=== PATIENT | male | born 1960 | race Caucasian/White ===

== ENCOUNTER 2019-04-28 06:00 | Outpatient (RCR) | payer MEDICARE, SELFPAY | END 2019-05-28 00:01 | LOC: MOT 06:00 | PROVIDERS: Family Provider Family Medicine; Visit Provider Nurse Practitioner Family | DX: L97.911 Non-pressure chronic ulcer of unspecified part of right lower leg limited to breakdown of skin (principal); L97.921 Non-pressure chronic ulcer of unspecified part of left lower leg limited to breakdown of skin | CPT/HCPCS: 97140 ×12 ==

== ENCOUNTER 2019-05-29 06:00 | Outpatient (RCR) | payer MEDICARE, MEDICAID, SELFPAY | END 2019-06-28 23:59 | disposition home or self-care (01) | LOC: MOT 06:00 | PROVIDERS: Family Provider Family Medicine; PCP Family Medicine; Visit Provider Nurse Practitioner Family | DX: R60.0 Localized edema (principal) | CPT/HCPCS: 97140 ==

== ENCOUNTER → 2019-06-06 15:41 | Outpatient (BNVA) | payer MEDICARE, MEDICAID, SELFPAY | PROVIDERS: Family Provider Family Medicine; PCP Family Medicine; Visit Provider Family Medicine | DX: I50.30 Unspecified diastolic (congestive) heart failure (principal) | CPT/HCPCS: 80048 ==

== ENCOUNTER → 2019-06-10 10:20 | Outpatient (BNVA) | payer MEDICARE, MEDICAID, SELFPAY | PROVIDERS: Family Provider Family Medicine; PCP Family Medicine; Visit Provider Nurse Practitioner Family | DX: M16.12 Unilateral primary osteoarthritis, left hip (principal) | CPT/HCPCS: 73502; 87086 ==

== ENCOUNTER 2019-06-26 10:51 | Outpatient (RCR) | payer MEDICARE, MEDICAID, SELFPAY ==
--- NOTE | 2019-06-12 10:01 | USCV_ITS ---
David Sánchez Age: 59 Gender: M : 1960 Exam Date: 06/12/2019 10:03 Ordering Phys: Arely Diamond Technologist: Exam Location: [facility] – [place] Indication: PAIN REDNESS NON HEALING ULCER RIGHT LEFT Brachial 123.00 mmHg Brachial 132.00 mmHg Pressure (mmHg) Waveform Pressure (mmHg) Waveform 110.00 Pre-Exercise Toe Pressure 91.00 0.83 Pre-Exercise Toe/Brachial Index 0.69 FINDINGS Normal resting TBI on the right side Borderline low resting TBI on the left side Unable to do JOHN because of the wounds and bandages around the ankle CONCLUSIONS Possible mild peripheral artery disease in the left side. No significant arterial obstruction on the right side, based on the TBI Technically limited study Dr Alber Michael MD FAC (Electronically Signed) Final Date: 13 June 2019 09:10 S
== END 2019-06-28 23:59 | disposition home or self-care (01) ==
LOC: RAD 10:51
PROVIDERS: Family Provider Family Medicine; PCP Family Medicine; Visit Provider Nurse Practitioner Family
DX: I87.2 Venous insufficiency (chronic) (peripheral) (principal); L97.822 Non-pressure chronic ulcer of other part of left lower leg with fat layer exposed; M79.605 Pain in left leg; M79.604 Pain in right leg
CPT/HCPCS: 29581; 87070; 87077; 87186; 93922; 99203; 99214; A6530; A6545

== ENCOUNTER → 2019-06-27 10:56 | Outpatient (BNVA) | payer MEDICARE, MEDICAID, SELFPAY | PROVIDERS: Family Provider Family Medicine; PCP Family Medicine; Visit Provider Family Medicine | DX: I50.32 Chronic diastolic (congestive) heart failure (principal); F33.40 Major depressive disorder, recurrent, in remission, unspecified; L97.911 Non-pressure chronic ulcer of unspecified part of right lower leg limited to breakdown of skin; M16.10 Unilateral primary osteoarthritis, unspecified hip | CPT/HCPCS: 80048 ==

== ENCOUNTER → 2019-06-28 12:54 | Outpatient (BNVA) | payer MEDICARE, MEDICAID, SELFPAY | PROVIDERS: Family Provider Family Medicine; PCP Family Medicine; Visit Provider Anesthesiology | DX: G89.29 Other chronic pain (principal); M54.5 Low back pain; M79.651 Pain in right thigh; M79.652 Pain in left thigh; Z79.891 Long term (current) use of opiate analgesic | CPT/HCPCS: 99214 ==

== ENCOUNTER → 2019-07-02 12:36 | Outpatient (BNVA) | payer MEDICARE, SELFPAY | PROVIDERS: Family Provider Family Medicine; PCP Family Medicine; Visit Provider Psychiatry & Neurology Psychiatry | DX: F33.2 Major depressive disorder, recurrent severe without psychotic features (principal); F41.1 Generalized anxiety disorder | CPT/HCPCS: 99214 ==

== ENCOUNTER → 2019-07-09 07:06 | Day surgery (SDC) | payer MEDICARE, MEDICAID, SELFPAY ==
[2019-07-09 07:58] VITALS: BMI 29.9
--- NOTE | 2019-07-09 08:12 | PM.HPUD ---
H&P update H&P Update: DATE OF SURGERY/PROCEDURE: 07/09/19 DATE H&P PERFORMED: 06/10/19 H&P UPDATE INFORMATION: H&P completed within last 30 days and No changes to prior documentation PLANNED PROCEDURE: Operation Date: 07/09/19 09:30 Proposed Procedures p Colonoscopy 77256 Z12.11(Not Applicable) - Henry Hernandez MD Full H&P Perinent History: Medical/Surgical History: Medical History (Updated 06/30/19 @ 14:04 by Jenn Mcgowan MD) Anxiety and depression CHF (congestive heart failure) Diabetes Generalized anxiety disorder GERD (gastroesophageal reflux disease) Hemorrhoids Hip arthritis Impaired mobility and activities of daily living Leg ulcer Major depressive disorder, recurrent severe without psychotic features Overflow incontinence of urine Urinary retention Family History: Family History (Updated 06/10/19 @ 15:34 by Meera Ashford LPN) Brother Heart disease Mother Cancer stomach Father Cancer colon cancer Denies family history of Anesthesia complication Bleeding disorder Social History: Social History Smoking and tobacco status: never smoked Alcohol intake: never Household members: significant other Marital status: Single Current occupational status: disabled
[2019-07-09 08:16] LABS: Glucose Point of Care 105 mg/dL (70-110)
[2019-07-09] MEDS: sodium chloride 0.9% 1,000 ML 30 ML (08:23)
[2019-07-09 09:25] VITALS: BP 122/64; PULSE 76; RESP 18; TEMP 36.4; O2SAT 98
== END | disposition home or self-care (01) ==
PROVIDERS: Family Provider Family Medicine; PCP Family Medicine; Visit Provider Surgery
PROC: 0DJD8ZZ Inspection of Lower Intestinal Tract, Via Natural or Artificial Opening Endoscopic (ICD-10-PCS; CPT 45378; principal; 2019-07-09 09:30)
DX: Z12.11 Encounter for screening for malignant neoplasm of colon (principal); Z53.9 Procedure and treatment not carried out, unspecified reason; Z79.82 Long term (current) use of aspirin; Z79.84 Long term (current) use of oral hypoglycemic drugs; F41.9 Anxiety disorder, unspecified; F32.9 Major depressive disorder, single episode, unspecified; I50.9 Heart failure, unspecified; E11.9 Type 2 diabetes mellitus without complications; K21.9 Gastro-esophageal reflux disease without esophagitis; Z83.3 Family history of diabetes mellitus; Z82.49 Family history of ischemic heart disease and other diseases of the circulatory system
CPT/HCPCS: 12345; 36416; 82962; J2704; J7030

== ENCOUNTER 2019-07-10 08:36 | Outpatient (RCR) | payer MEDICARE, MEDICAID, SELFPAY | END 2019-07-27 23:59 | disposition home or self-care (01) | LOC: WOUND 08:36 | PROVIDERS: Family Provider Family Medicine; PCP Family Medicine; Visit Provider Nurse Practitioner Family | DX: I87.2 Venous insufficiency (chronic) (peripheral) (principal); L97.812 Non-pressure chronic ulcer of other part of right lower leg with fat layer exposed | CPT/HCPCS: 99214; G0463 ==

== ENCOUNTER 2019-07-15 11:23 | Emergency (ER) | payer MEDICARE, MEDICAID, SELFPAY ==
[2019-07-15 11:24] VITALS: BP 116/69; PULSE 82; RESP 16; TEMP 36.7; O2SAT 95; BMI 39.0
--- NOTE | 2019-07-15 11:31 | PC.NURSE ---
Patient arrives via EMS with a chief complaint of increase agitation and medication abuse. Patient reports his anger has got much worse. Patient also states while at bedside I don't want to hurt my girlfriend but I'd kill her, but don't want to hurt her. Patient denies SI. Patient reports a history of SI.
--- NOTE | 2019-07-15 11:53 | PC.NURSE ---
GODWIN Shin notified of the patients comment during assessment.
--- NOTE | 2019-07-15 11:54 | ECG_ITS ---
Measurements Intervals [place] Rate: 77 P: 45 CT: 198 QRS: 74 QRSD: 117 T: 39 QT: 404 QTc: 459 SINUS RHYTHM POSSIBLE LEFT ATRIAL ENLARGEMENT [-0.1mV P WAVE IN V1/V2] MODERATE INTRAVENTRICULAR CONDUCTION DELAY [110+ ms QRS DURATION] No previous ECG available for comparison Electronically Signed On 07-15-2019 16:06:16 CERTIFIED EXECUTIVE CHEF by Zac Meraz M.D. [email or web address]
--- NOTE | 2019-07-15 11:54 | CTR_ITS ---
PROCEDURE INFORMATION: Exam: CT Head Without Contrast Exam date and time: 07/15/2019 12:13 PM Age: 59 years old Clinical indication: Altered mental status/memory loss; Patient HX: AMS with history of dementia TECHNIQUE: Imaging protocol: Computed tomography of the head without contrast. Total DLP: 784.43 mGy-cm Radiation optimization: All CT scans at this facility use at least one of these dose optimization techniques: automated exposure control; mA and/or kV adjustment per patient size (includes targeted exams where dose is matched to clinical indication); or iterative reconstruction. COMPARISON: No relevant prior studies available. FINDINGS: Brain: There is no acute intracranial hemorrhage or mass effect. Mild diffuse volume loss is within the range of normal for patient age. There are small vessel ischemic changes within the periventricular and subcortical white matter, but the normal travis/white matter delineation is maintained. Ventricles: Diffuse prominence of the ventricular system is out of proportion to the degree of volume loss, raising the possibility of normal pressure hydrocephalus. Bones/joints: Unremarkable. No acute fracture. Sinuses: Visualized sinuses are unremarkable. No fluid levels. Mastoid air cells: Visualized mastoid air cells are well aerated. Soft tissues: Unremarkable. CT/CT head wo con* [id number] IMPRESSION: 1. No acute hemorrhage or edema. 2. Suspected normal pressure hydrocephalus. Radiation Dose CTDIVOL = (mGy): DLP = 784.43 (mGy-cm)
--- NOTE | 2019-07-15 11:57 | W.ED.AMS ---
Documented by User: GODWIN Rosas 07/15/19 14:28 HPI - Altered Mental Status General: Chief Complaint: Psychiatric Symptoms Stated Complaint: MHE/anger issues Time Seen by Provider: 07/15/19 11:28 Source: patient Mode of arrival: EMS Limitations: no limitations History of Present Illness: HPI narrative: Patient is a 59-year-old male who presents to ED today stating he believes he is overdosing himself on medications. He tells me that the girlfriend wanted him to come to the emergency department because he was acting loopy . Patient tells me that the girlfriend places his medication in a pill dispenser and states he is scheduled to take medications 4 times daily. He states when he misses his morning dose he will often take his morning and noon doses together. Patient has a history of dementia as well as intellectual delays. He tells me he is his own guardian. Girlfriend is at home currently and according to EMS also has intellectual disabilities. MD complaint: other (Medication noncompliance) Onset (ago): unknown Consistency of symptoms: Waxing and Waning Associated symptoms: Reports no associated symptoms Review of Systems Const: Denies: fever, chills or body aches Eyes: Denies: change in vision or blurry vision Card: Denies: chest pain, palpitations, irregular heart rhythm, edema, lightheadedness, syncope or pre-syncope Resp: Denies: shortness of breath, productive cough or chest congestion GI: Denies: abdominal pain, nausea or vomiting Musc: Denies: neck pain or back pain Skin/Breast: Denies: rash Neuro: Denies: headache, numbness in extremities, weakness in extremities, changes in sensation, lack of coordination, dizziness, confusion or seizure-like activity [facility] ED PFSH: Family History (Updated 07/22/19 @ 11:15 by Hanna Montilla DO) Brother Heart disease Mother Cancer stomach Father Cancer colon cancer CAD (coronary artery disease) Denies family history of Anesthesia complication Bleeding disorder Social History Smoking and tobacco status: former smoker Alcohol intake: never Household members: significant other Marital status: Single Current occupational status: disabled Physical Exam Const: COMMON NORMALS: no apparent distress, oriented x3, alert and well nourished ORIENTATION/CONSCIOUSNESS: Yes oriented to person and Yes oriented to place Eye: COMMON NORMALS: PERRL and EOMs intact bilaterally PUPIL: Yes PERRL Resp: COMMON NORMALS: normal respiratory effort and clear to auscultation bilaterally AUSCULTATION: clear to auscultation bilaterally Cardio: COMMON NORMALS: regular rate and regular rhythm RATE: regular rate RHYTHM: regular rhythm GI: COMMON NORMALS: normal to inspection, nondistended, normoactive bowel sounds, soft to palpation, non-tender, no hepatosplenomegaly and no masses PALPATION: Yes soft and Yes no hepatosplenomegaly Extremity: COMMON NORMALS: normal to inspection Neuro: SHIKHA COMA SCALE: document GCS findings Darragh coma scale eye opening: Spontaneous Darragh coma scale verbal response: Orientated Darragh coma scale motor response: Obey commands Shikha coma scale total score: 15 COMMON NORMALS: oriented x3, CN's II-XII intact bilaterally, moves all extremities, no focal motor deficits and no sensory deficits noted SENSORIUM/ORIENTATION: Yes alert, Yes oriented to person, Yes oriented to place and Yes other OTHER: Patient is able to tell me his name, , and that he is currently at [facility]. He knows today is Monday but does not know the month or year. He is able to tell me his PCP name. Patient follows commands well. Staff who have treated patient before feels he is at his baseline. Course Vital Signs: Vital signs: Vital Signs Temperature 98.1 F 07/15/19 11:24 Pulse Rate 99 07/15/19 15:36 Respiratory Rate 16 07/15/19 15:36 Blood Pressure 113/81 07/15/19 15:36 Pulse Oximetry 96 07/15/19 15:36 MDM - Altered Mental Status MDM Narrative: Medical decision making narrative: I do not see anything concerning regarding patient's labs or imaging at this time. He is his own guardian and does not wish to go to a prison/assisted living facility. Spoke to Dr. Burnette regarding management. We reviewed patient's medications and do not feel any of these are life-threatening even if he did take 2 doses simultaneously. It is felt he does not meet inpatient criteria. Patient will be discharged home. Lab Data: Labs: Lab Results 07/15/19 07/15/19 07/15/19 Range/Units 11:59 12:01 12:01 WBC 5.5 (4.0-10.0) 10^3/ uL RBC 4.32 (4.1-5.3) 10^6/u L Hgb 11.1 L (11.7-16.6) g/dL Hct 35.1 L (42.0-52.0) % MCV 81.3 (80-94) fL MCH 25.7 L (28.0-34.0) pg MCHC 31.6 (30.0-36.0) g/dL RDW 16.7 H (12.1-15.1) % Plt Count 161 (130-400) 10^3/c mm MPV 9.4 (7.4-10.4) fL Neut % (Auto) 65.2 % Lymph % (Auto) 17.8 % Ross % (Auto) 7.5 % Eos % (Auto) 8.6 % Baso % (Auto) 0.7 % Neut # (Auto) 3.6 (1.8-7.7) 10^3/u L Lymph # (Auto) 1.0 (0.8-4.8) 10^3/u L Ross # (Auto) 0.4 (0.2-0.9) 10^3/u L Eos # (Auto) 0.5 (0.0-0.8) 10^3/u L Baso # (Auto) 0.0 (0.0-0.1) 10^3/u L Nucleated RBC % (a uto) 0 % Nucleated RBCs # 0.0 /100WBC Sodium 139 (136-145) mmol/L Potassium 3.5 (3.5-5.1) mmol/L Chloride 100 (98-107) mmol/L Carbon Dioxide 27 (22-29) mmol/L Anion Gap 15.5 (5-19) BUN 18 (6-20) mg/dL Creatinine 1.2 (0.7-1.2) mg/dL GFR Calculation 62.2 L (90-130) mL/min Glucose 102 (65-115) mg/dL Calcium 9.3 (8.5-10.5) mg/dL Total Bilirubin 0.5 (0.15-1.2) mg/dL AST 30 (0-40) U/L ALT 22 (0-41) U/L Alkaline Phosphata se 100 (40-130) IU/L Total Protein 6.6 (6.6-8.7) g/dL Albumin 3.8 (3.5-5.2) g/dL Globulin 2.8 (1.3-4.6) g/dL Salicylates < 0.3 L (3-10) mg/dL Urine Opiates Scre en Positve (Negative) ng/mL Acetaminophen < 5.0 L (10-30) ug/mL Ur Barbiturates Sc reen Negative (Negative) ng/mL Ur Phencyclidine S crn Negative (Negative) ng/mL Ur Amphetamines Sc reen Negative (Negative) ng/mL U Benzodiazepines Scrn Negative (Negative) ng/mL Urine Cocaine Scre en Negative (Negative) ng/mL U Marijuana (THC) Screen Negative (Negative) ng/mL Ethyl Alcohol < 10 (0-10) mg/dL Imaging Data^: CT Head: Radiologist's impression: [place] [address] CT Scan Report Signed Patient: David Sánchez Unit #: [id number] : 1960 Age/Sex: 59 / M ADM Date: 07/15/19 Loc: ER Room/Bed: Attending Dr: Ordering Provider/Ordering MD: Aleida Barbosa Date of Service: 07/15/19 Procedure(s): CT head wo con* [id number] Accession Number(s): [id number] Report Number: [id number] PROCEDURE INFORMATION: Exam: CT Head Without Contrast Exam date and time: 07/15/2019 12:13 PM Age: 59 years old Clinical indication: Altered mental status/memory loss; Patient HX: AMS with history of dementia TECHNIQUE: Imaging protocol: Computed tomography of the head without contrast. Total DLP: 784.43 mGy-cm Radiation optimization: All CT scans at this facility use at least one of these dose optimization techniques: automated exposure control; mA and/or kV adjustment per patient size (includes targeted exams where dose is matched to clinical indication); or iterative reconstruction. COMPARISON: No relevant prior studies available. FINDINGS: Brain: There is no acute intracranial hemorrhage or mass effect. Mild diffuse volume loss is within the range of normal for patient age. There are small vessel ischemic changes within the periventricular and subcortical white matter, but the normal travis/white matter delineation is maintained. Ventricles: Diffuse prominence of the ventricular system is out of proportion to the degree of volume loss, raising the possibility of normal pressure hydrocephalus. Bones/joints: Unremarkable. No acute fracture. Sinuses: Visualized sinuses are unremarkable. No fluid levels. Mastoid air cells: Visualized mastoid air cells are well aerated. Soft tissues: Unremarkable. CT/CT head wo con* [id number] IMPRESSION: 1. No acute hemorrhage or edema. 2. Suspected normal pressure hydrocephalus. Radiation Dose CTDIVOL = (mGy): DLP = 784.43 (mGy-cm) Dictated By: Sindy Betancourt MD Signed By: Sindy Betancourt MD Signed Date/Time: 07/15/19 123 DD/ 1235 Discharge Plan Discharge Patient Disposition: Home, Self-Care Clinical Impression: Noncompliance with medication regimen Condition: Stable Prescriptions: No Action atorvastatin 80 mg Tablet 80 mg PO DAILY RF: 0 bumetanide 2 mg Tablet 4 mg PO BID RF: 0 spironolactone 25 mg Tablet 25 mg PO DAILY RF: 0 potassium chloride 20 mEq Tablet Extended Release 20 meq PO TID RF: 0 doxepin 50 mg Capsule 100 mg PO BEDTIME Qty: 60 RF: 4 memantine 5 mg Tablet 10 mg PO BID Qty: 60 RF: 4 duloxetine 20 mg Capsule,Delayed Release(Dr/Ec) 20 mg PO DAILY Qty: 30 RF: 4 trazodone 50 mg Tablet 50 mg PO BEDTIME PRN (Reason: Sleep) Qty: 30 RF: 4 topiramate 25 mg Tablet 50 mg PO BID Qty: 60 RF: 4 metformin [Glucophage] 500 mg tablet 500 mg PO BID Qty: 60 RF: 4 oxybutynin chloride 5 mg Tablet 10 mg PO BID Qty: 120 RF: 4 Discharge Orders: Discharge Order (Routine); Ordered 07/15/19 Ordered By: Aleida Barbosa Referrals: Jenn Mcgowan MD [Primary Care Provider] - Activity Restrictions/Additional Instructions: As discussed you need to set an alarm on your phone or place a note on the refrigerator or next to your toothbrush to remind you to take your medications as directed. Discharge Date/Time: 07/15/19 15:37 Coding Level of Care Code ED Nuclear Licensing Engineer for Chg Fwd Exam Detailed Documented by User: Rui Burnette [place] [facility] [place]/23/[place] 23:46 HPI - Altered Mental Status General: Chief Complaint: Psychiatric Symptoms Stated Complaint: MHE/anger issues Time Seen by Provider: 07/15/19 11:28 PFSH ED PFSH: Family History (Updated 07/22/19 @ 11:15 by Hnana Montilla DO) Brother Heart disease Mother Cancer stomach Father Cancer colon cancer CAD (coronary artery disease) Denies family history of Anesthesia complication Bleeding disorder Social History Smoking and tobacco status: former smoker Alcohol intake: never Household members: significant other Marital status: Single Current occupational status: disabled Course Vital Signs: Vital signs: Vital Signs Temperature 98.1 F 07/15/19 11:24 Pulse Rate 99 07/15/19 15:36 Respiratory Rate 16 07/15/19 15:36 Blood Pressure 113/81 07/15/19 15:36 Pulse Oximetry 96 07/15/19 15:36 MDM - Altered Mental Status Lab Data: Labs: Lab Results 07/15/19 07/15/19 07/15/19 Range/Units 11:59 12:01 12:01 WBC 5.5 (4.0-10.0) 10^3/ uL RBC 4.32 (4.1-5.3) 10^6/u L Hgb 11.1 L (11.7-16.6) g/dL Hct 35.1 L (42.0-52.0) % MCV 81.3 (80-94) fL MCH 25.7 L (28.0-34.0) pg MCHC 31.6 (30.0-36.0) g/dL RDW 16.7 H (12.1-15.1) % Plt Count 161 (130-400) 10^3/c mm MPV 9.4 (7.4-10.4) fL Neut % (Auto) 65.2 % Lymph % (Auto) 17.8 % Ross % (Auto) 7.5 % Eos % (Auto) 8.6 % Baso % (Auto) 0.7 % Neut # (Auto) 3.6 (1.8-7.7) 10^3/u L Lymph # (Auto) 1.0 (0.8-4.8) 10^3/u L Ross # (Auto) 0.4 (0.2-0.9) 10^3/u L Eos # (Auto) 0.5 (0.0-0.8) 10^3/u L Baso # (Auto) 0.0 (0.0-0.1) 10^3/u L Nucleated RBC % (a uto) 0 % Nucleated RBCs # 0.0 /100WBC Sodium 139 (136-145) mmol/L Potassium 3.5 (3.5-5.1) mmol/L Chloride 100 (98-107) mmol/L Carbon Dioxide 27 (22-29) mmol/L Anion Gap 15.5 (5-19) BUN 18 (6-20) mg/dL Creatinine 1.2 (0.7-1.2) mg/dL GFR Calculation 62.2 L (90-130) mL/min Glucose 102 (65-115) mg/dL Calcium 9.3 (8.5-10.5) mg/dL Total Bilirubin 0.5 (0.15-1.2) mg/dL AST 30 (0-40) U/L ALT 22 (0-41) U/L Alkaline Phosphata se 100 (40-130) IU/L Total Protein 6.6 (6.6-8.7) g/dL Albumin 3.8 (3.5-5.2) g/dL Globulin 2.8 (1.3-4.6) g/dL Salicylates < 0.3 L (3-10) mg/dL Urine Opiates Scre en Positve (Negative) ng/mL Acetaminophen < 5.0 L (10-30) ug/mL Ur Barbiturates Sc reen Negative (Negative) ng/mL Ur Phencyclidine S crn Negative (Negative) ng/mL Ur Amphetamines Sc reen Negative (Negative) ng/mL U Benzodiazepines Scrn Negative (Negative) ng/mL Urine Cocaine Scre en Negative (Negative) ng/mL U Marijuana (THC) Screen Negative (Negative) ng/mL Ethyl Alcohol < 10 (0-10) mg/dL Discharge Plan Discharge Patient Disposition: Home, Self-Care Clinical Impression: Noncompliance with medication regimen Condition: Stable Prescriptions: No Action atorvastatin 80 mg Tablet 80 mg PO DAILY RF: 0 bumetanide 2 mg Tablet 4 mg PO BID RF: 0 spironolactone 25 mg Tablet 25 mg PO DAILY RF: 0 potassium chloride 20 mEq Tablet Extended Release 20 meq PO TID RF: 0 doxepin 50 mg Capsule 100 mg PO BEDTIME Qty: 60 RF: 4 memantine 5 mg Tablet 10 mg PO BID Qty: 60 RF: 4 duloxetine 20 mg Capsule,Delayed Release(Dr/Ec) 20 mg PO DAILY Qty: 30 RF: 4 trazodone 50 mg Tablet 50 mg PO BEDTIME PRN (Reason: Sleep) Qty: 30 RF: 4 topiramate 25 mg Tablet 50 mg PO BID Qty: 60 RF: 4 metformin [Glucophage] 500 mg tablet 500 mg PO BID Qty: 60 RF: 4 oxybutynin chloride 5 mg Tablet 10 mg PO BID Qty: 120 RF: 4 Discharge Orders: Discharge Order (Routine); Ordered 07/15/19 Ordered By: Aleida Barbosa Referrals: Jenn Mcgowan MD [Primary Care Provider] - Activity Restrictions/Additional Instructions: As discussed you need to set an alarm on your phone or place a note on the refrigerator or next to your toothbrush to remind you to take your medications as directed. Discharge Date/Time: 07/15/19 15:37 Coding Level of Care Code ED Nuclear Licensing Engineer for Chg Fwd Exam Detailed
[2019-07-15 12:10] LABS: Basophils % 0.7 %; Eosinophils # 0.5 10^3/uL (0.0-0.8); Eosinophils % 8.6 %; Hematocrit 35.1 % (42.0-52.0); Hemoglobin 11.1 g/dL (11.7-16.6); Lymphocytes % 17.8 %; Mean Corpuscular HGB Conc 31.6 g/dL (30.0-36.0); Mean Corpuscular Hemoglobin 25.7 pg (28.0-34.0); Mean Corpuscular Volume 81.3 fL (80-94); Mean Platelet Volume 9.4 fL (7.4-10.4); Monocytes # 0.4 10^3/uL (0.2-0.9); Monocytes % 7.5 %; Neutrophils # 3.6 10^3/uL (1.8-7.7); Neutrophils % 65.2 %; Nucleated Red Blood Cells % 0 %; Platelet Count 161 10^3/cmm (130-400); Red Blood Count 4.32 10^6/uL (4.1-5.3); Red Cell Distribution Width 16.7 % (12.1-15.1); White Blood Count 5.5 10^3/uL (4.0-10.0)
[2019-07-15 12:28] LABS: Amphetamines Screen Urine Negative (Negative); Barbiturates Screen Urine Negative (Negative); Benzodiazepines Screen Urine Negative (Negative); Cocaine Screen Urine Negative (Negative); PCP Screen Urine Negative (Negative); THC Screen Urine Negative (Negative)
[2019-07-15 12:29] LABS: Alanine Aminotransferase 22 U/L (0-41); Albumin Level 3.8 g/dL (3.5-5.2); Alkaline Phosphatase 100 IU/L (40-130); Anion Gap 15.5 (5-19); Aspartate Amino Transferase 30 U/L (0-40); Blood Urea Nitrogen 18 mg/dL (6-20); Calcium 9.3 mg/dL (8.5-10.5); Carbon Dioxide 27 mmol/L (22-29); Chloride 100 mmol/L (98-107); Globulin 2.8 g/dL (1.3-4.6); Glomerular Filtration Rate 62.2 mL/min (90-130); Glucose 102 mg/dL (65-115); Potassium 3.5 mmol/L (3.5-5.1); Sodium 139 mmol/L (136-145); Total Bilirubin 0.5 mg/dL (0.15-1.2); Total Protein 6.6 g/dL (6.6-8.7)
[2019-07-15 12:45] LABS: Acetaminophen < 5.0 ug/mL (10-30); Alcohol Level < 10 mg/dL (0-10); Salicylate < 0.3 mg/dL (3-10)
[2019-07-15 15:32] VITALS: BP 99/68; PULSE 83; RESP 20; O2SAT 96
[2019-07-15 15:36] VITALS: BP 113/81; PULSE 99; RESP 16; O2SAT 96
== END 2019-07-15 15:37 | disposition home or self-care (01) ==
PROVIDERS: Emergency Provider Physician Assistant; Family Provider Family Medicine; PCP Family Medicine
DX: R45.4 Irritability and anger (principal); F79 Unspecified intellectual disabilities; F03.90 Unspecified dementia, unspecified severity, without behavioral disturbance, psychotic disturbance, mood disturbance, and anxiety; R40.2412 Glasgow coma scale score 13-15, at arrival to emergency department; Z91.14 Patient's other noncompliance with medication regimen
CPT/HCPCS: 36415; 70450; 80053; 80306; 80307; 85025; 93005; 99282; 99283; A9270

== ENCOUNTER 2019-07-15 19:47 | Inpatient (IN) | payer MEDICARE, MEDICAID, SELFPAY ==
[2019-07-15 19:53] VITALS: BP 126/76; PULSE 80; RESP 18; TEMP 36.9; O2SAT 95; BMI 48.8
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
[2019-07-15 20:47] VITALS: BP 128/59; PULSE 76; RESP 18; O2SAT 97
--- NOTE | 2019-07-15 21:31 | PC.NURSE ---
PT DEMANDING, YELLING OUT REQUESTS, WANTING GIRLFRIEND AND WANTING PAIN PILLS.SPRITE AND WARM BLANKET PROVIDED AT THIS TIME. GIRLFRIENDS WHEREABOUTS IS UNKNOWN.
[2019-07-15 22:02] VITALS: BP 133/65; PULSE 80; RESP 17; O2SAT 96
[2019-07-15 22:06] LABS: Basophils % 0.6 %; Eosinophils # 0.4 10^3/uL (0.0-0.8); Eosinophils % 5.3 %; Hemoglobin 10.7 g/dL (11.7-16.6); Lymphocytes % 14.4 %; Mean Corpuscular HGB Conc 31.5 g/dL (30.0-36.0); Mean Corpuscular Hemoglobin 25.7 pg (28.0-34.0); Mean Corpuscular Volume 81.5 fL (80-94); Mean Platelet Volume 10.4 fL (7.4-10.4); Monocytes # 0.5 10^3/uL (0.2-0.9); Monocytes % 6.9 %; Neutrophils % 72.7 %; Nucleated Red Blood Cells % 0 %; Platelet Count 182 10^3/cmm (130-400); Red Blood Count 4.17 10^6/uL (4.1-5.3); Red Cell Distribution Width 16.8 % (12.1-15.1); White Blood Count 6.9 10^3/uL (4.0-10.0)
[2019-07-15 22:06] LABS: Add Urine Microscopic? NO
[2019-07-15 22:09] LABS: Urine Appearance Clear (CLEAR); Urine Color Yellow (Yellow); pH Urine 6.5 (5-7)
[2019-07-15 22:10] LABS: Bilirubin Urine Neg (NEGATIVE); Blood Urine Neg (Negative); Glucose Urine UA Norm (Normal); Ketones Urine Negative (Negative); Leukocyte Esterase Urine Negative (Negative); Nitrate Urine Negative (Negative); Protein Urine Neg (Negative); Specific Gravity, Urine 1.005 (1.005-1.030); Urobilinogen Urine Norm (Negative)
[2019-07-15 22:24] LABS: Amphetamines Screen Urine Negative (Negative); Barbiturates Screen Urine Negative (Negative); Benzodiazepines Screen Urine Negative (Negative); Cocaine Screen Urine Negative (Negative); PCP Screen Urine Negative (Negative); THC Screen Urine Negative (Negative)
[2019-07-15 22:32] LABS: Alanine Aminotransferase 21 U/L (0-41); Albumin Level 3.4 g/dL (3.5-5.2); Alkaline Phosphatase 90 IU/L (40-130); Anion Gap 15.3 (5-19); Aspartate Amino Transferase 29 U/L (0-40); Blood Urea Nitrogen 14 mg/dL (6-20); Calcium 9.3 mg/dL (8.5-10.5); Carbon Dioxide 24 mmol/L (22-29); Chloride 99 mmol/L (98-107); Glomerular Filtration Rate 62.2 mL/min (90-130); Glucose 138 mg/dL (65-115); Potassium 3.3 mmol/L (3.5-5.1); Sodium 135 mmol/L (136-145); Thyroid Stimulating Hormone 1.59 uIU/mL (0.27-4.20); Total Bilirubin 0.5 mg/dL (0.15-1.2); Total Protein 6.4 g/dL (6.6-8.7)
[2019-07-15 22:43] LABS: Acetaminophen < 5.0 ug/mL (10-30); Alcohol Level < 10 mg/dL (0-10); Salicylate < 0.3 mg/dL (3-10)
[2019-07-15 22:54] VITALS: BP 126/76; PULSE 76; RESP 18; O2SAT 98
[2019-07-15] MEDS: ziprasidone 20 mg/mL SDV IM (23:27)
[2019-07-16] VITALS (9 sets, daily range): BP systolic 107–158; BP diastolic 56–91; PULSE 60–84; RESP 16–20; TEMP 36.4–37; O2SAT 93–97
[2019-07-16] MEDS: acetaminophen 500 mg Tablet 1000 MG PO ×2 (04:45→10:49)
[2019-07-16] MEDS: haloperidol inj 5 mg/mL INJ 1 mL 2 MG IM (05:14)
--- NOTE | 2019-07-16 08:15 | PC.NURSE ---
Pt C/O being hot. Has heavy sweater on. Removed sweater. Also states he needs to go to the bathroom. Attempted to ambulate to bathroom but started getting dizzy, so got wheelchair and took pt to bathroom. Pt in bathroom for approx 5 minutes and started yelling. Went to bathroom and pt standing at toilet stating he needs a catheter, He can't pee. Advised pt to sit on toilet and try to relax and see if he couldn't pee that way
--- NOTE | 2019-07-16 11:05 | XR_ITS ---
WS: [id number] XR chest 1V portable [id number] REASON FOR EXAM: transfer FINDINGS: The trachea is deviated to the right of the midline. No mediastinal masses are seen. The heart is not enlarged the heart and mediastinal interfaces normal. The lung sandoval are clear there is no pneumonia or congestive failure or pulmonary edema. The hilum and apices are normal. XR/XR chest 1V portable [id number] IMPRESSION: Deviation of the trachea slightly towards the right side. Negative chest for active pathology.
--- NOTE | 2019-07-16 11:07 | PC.NURSE ---
Faxed papers to [facility]
[2019-07-16 12:21] LABS: T3 Free 2.5 PG/ML (2.0-4.4)
--- NOTE | 2019-07-16 13:55 | PC.NURSE ---
WHEN CENTERLESS GRINDER OPERATOR WENT TO DO HIS SKIN ASSESSMENT,CENTERLESS GRINDER OPERATOR NOTED THAT PT HAD 2-3 + EDEMA IN BILATERAL FEET AND ALSO HAS BILATERAL LYMPHEDEMA WRAPS TO BILATERAL LEGS AND PT VOICED THAT HE SEE'S SOMEONE AT THE WOUND CLINIC. THIS CENTERLESS GRINDER OPERATOR MADE AWARE AND CENTERLESS GRINDER OPERATOR DIDNT REMOVE WRAPS TO VIEW LEGS.CENTERLESS GRINDER OPERATOR PLACED A CALL TO THE WOUND CLINIC AT [phone] AND LEFT A MESSAGE TO HAVE WOUND CLINIC TO RETURN CALL TO [facility] IN THE AM.
[2019-07-16] MEDS: LORazepam 2 mg/mL INJ 1 mL IM (14:11)
--- NOTE | 2019-07-16 14:12 | PC.NURSE ---
PRN ATIVAN 2 MG GIVEN PO PER PT C/O INCREASED ANXIETY. UPON ARRIVAL TO UNIT PT HAS RAPID SPEECH, YELLING LOUDLY AT NURSING STAFF. TOOK INJECTION WITHOUT INCIDENT. WILL CONT TO MONITOR
[2019-07-16 16:37] LABS: Glucose Point of Care 118 mg/dL (70-110)
[2019-07-16] MEDS: tamsulosin 0.4 mg Capsule PO (19:24)
[2019-07-16] MEDS: oxybutynin 5 mg Tablet PO (19:24)
[2019-07-16] MEDS: metformin 500 mg Tablet PO (19:25)
[2019-07-16] MEDS: atorvastatin 40 mg Tablet 80 MG PO (20:11)
[2019-07-16] MEDS: gabapentin 300 mg Capsule 600 MG PO (20:11)
--- NOTE | 2019-07-16 22:49 | PC.NURSE ---
PATIENT BEHAVIOR PATIENT WAS INCONTINENT IN A PULLUP. STAFF WAS CHANGING HIM AND AFTER THE NURSE LEFT TO GRAB A FEW MORE ITEMS PATIENT THEN ASKED CLAY TEMPERER TO GIVE HIM A BLOWJOB TWICE. STAFF INFORMED PATIENT THAT HE WOULD NOT TALK TO THEM THAT WAY AND IT WAS COMPLETELY INAPPROPRIATE. PATIENT APOLOGIZED SEVERAL TIMES.
[2019-07-17] MEDS: LORazepam 1 mg Tablet PO ×2 (00:40→11:16)
--- NOTE | 2019-07-17 00:40 | PC.NURSE ---
PRN ATIVAN ATIVAN 1MG PO FOR MILD ANXIETY. WILL CONTINUE TO MONITOR FOR MEDICATION EFFECTIVENESS.
--- NOTE | 2019-07-17 01:40 | PC.NURSE ---
PRN ATIVAN FOLLOW UP MEDICATION EFFECTIVE. PATIENT LYING IN BED RESTING QUIETLY.
[2019-07-17] MEDS: acetaminophen 325 mg Tablet 650 MG PO ×3 (02:38→20:24)
[2019-07-17] MEDS: OLANZapine ODT 5 MG TABLET PO (03:10)
--- NOTE | 2019-07-17 03:10 | PC.NURSE ---
Addendum entered by Nataly Ribeiro LPN 07/17/19 04:08: MEDICATION NOT EFFECTIVE. SEE NEXT NOTE. Original Note: PRN ZYPREXA ZYDIS ZYPREXA ZYDIS 5MG PO FOR AGITATION/PSYCHOSIS. PATIENT IS YELLING/SCREAMING. WILL CONTINUE TO MONITOR FOR MEDICATION EFFECTIVENESS.
[2019-07-17] MEDS: LORazepam 2 mg/mL INJ 1 mL IM (04:06)
--- NOTE | 2019-07-17 04:06 | PC.NURSE ---
Addendum entered by Nataly Ribeiro LPN 07/17/19 05:05: medication effective. patient lying in bed resting, respirations even and unlabored. Original Note: PRN ATIVAN ATIVAN 2MG IM TO LEFT DELTOID FOR INCREASED ANXIETY. PATIENT YELLING/SCREAMING AT STAFF. WILL CONTINUE TO MONITOR FOR MEDICATION EFFECTIVENESS.
[2019-07-17 06:00] VITALS: RESP 20
--- NOTE | 2019-07-17 06:39 | PC.NURSE ---
VITAL SIGNS PATIENT REFUSED VITAL SIGNS.
[2019-07-17 07:21] LABS: Glucose Point of Care 105 mg/dL (70-110)
[2019-07-17] MEDS: pantoprazole DR 40 mg Tablet PO (08:35)
[2019-07-17] MEDS: oxybutynin 5 mg Tablet PO ×2 (08:35→17:51)
[2019-07-17] MEDS: metformin 500 mg Tablet PO ×2 (08:35→17:50)
[2019-07-17] MEDS: spironolactone 25 mg Tablet PO (08:35)
[2019-07-17] MEDS: tamsulosin 0.4 mg Capsule PO (08:35)
[2019-07-17 14:00] VITALS: BP 129/75; PULSE 104; RESP 20; TEMP 36.5; O2SAT 94
[2019-07-17] MEDS: OXcarbazepine 300 mg Tablet PO (14:04)
--- NOTE | 2019-07-17 17:29 | PM.NHP ---
Providers/Chief Complaint Admitting Physician: Dima Hinton MD Primary Care Provider: Jenn Mcgowan MD Chief Complaint: Psychosis HPI NPU History of Present Illness Chief complaint: I peed the bed again. IP my pants. IP the bed. it has Destroyed my life. it has destroyed my marriage. can you do something about it? History of present illness:David Sánchez is an alert 59-year-old man with multiple medical problems and significant psychosocial stressors who was admitted from the emergency room after he became violent at home. He had been to the emergency room earlier in the day. The initial emergency room report reads as follows: HPI narrative: Patient is a 59-year-old male who presents to ED today stating he believes he is overdosing himself on medications. He tells me that the girlfriend wanted him to come to the emergency department because he was acting loopy . Patient tells me that the girlfriend places his medication in a pill dispenser and states he is scheduled to take medications 4 times daily. He states when he misses his morning dose he will often take his morning and noon doses together. Patient has a history of dementia as well as intellectual delays. He tells me he is his own guardian. Girlfriend is at home currently and according to EMS also has intellectual disabilities. After a thorough evaluation, no acute problem was discovered and it was recommended he return home and be seen by his outpatient physicians. However when he returned home, he found an unexpected situation. His door was locked and nobody was there. The patient has a long history of poor emotional control apparently for a variety of reasons. He became angered. An ambulance was called resulting in the next ER physician note: 59 yo male presents to ED stating he is freaking out. He said he has too many medications to choose from. He keeps saying he has a lot of medications and he wants them taken away. He said f it!!! I don't want them anymore . He knows he has a 5th grade reading level and he just takes what he is told. The patient has chronic dementia and does not understand problems. His significant other who is also his caregiver and her son came later on and explained what has been going on with the patient. When the patient got home today after his initial ED visit he locked him out of the house, he had ripped the screen door off. He also was breaking stuff in the house and threatening to harm himself and to harm his caregiver. Because of his outburst and violence the ambulance was called to bring him back to the hospital for psychiatric evaluation. He was subsequently admitted to psychiatry. The patient was provided a safe and supportive environment where he had access to nursing and pharmacy retail support specialist. His medications were monitored. Continue to monitor his blood sugars and medical status. The working assumption was that this is a gentleman who was demonstrating a clinical signs of a frontal lobe dementia with cognitive impairment and inability to suppress inappropriate responses to his environment. Documented earlier in the month, he had made sexually inappropriate statements to his noctor. After arriving on the unit, he continued to make sexually inappropriate statements to the nursing staff. He also demonstrated a pattern of verbal outbursts when he was uncomfortable. However he demonstrated no aggression or assaultive behavior. Past psychiatric history: This was the patient?s first psychiatric admission. He has a long history of participating in outpatient mental health care receiving assistance from case management and episodic medication management for diagnoses of major depression and generalized anxiety disorder. For several years, he did well on low-dose Abilify Cymbalta and Topamax. However some time late last year, his Cymbalta was increased dramatically. He was diagnosed with dementia apparently as he was started on Aricept and Namenda. There is no documentation in his chart that a dementia assessment was performed. 08/07/14 Major depression and Generalized anxiety disorder Medicatioins: Abilify 5 milligrams daily, Cymbalta 20 milligrams two daily for a total of 40 milligrams daily and Klonopin 0.5 milligrams twice daily. 12/04/2018 Outpatient history and physical indicates active on: Abilify 2 mg daily Cymbalta 20 mg daily Topamax 25 mg bid 03/11/2019 [facility] mental health progress note indicates he is active on: Abilify 2 mg daily Cymbalta 60 mg two tablets daily Topamax 50 mg one by mouth twice a day Klonopin 0.5 mg twice daily as needed for anxiety; discussed titration, especially in case patient starts receiving opioids from pain management on regular basis. Home meds listed on admission: Abilify 5 mg bid, Aricept 5 mg/d, duloxetine 120 mg/d, Namenda 5 mg bid, Topamax 25 mg bid, clonazepam 0.5 mg bid, doxepin 20 mg at bedtime Working assessment the time of admission was that he was demonstrating frontal lobe release behaviors subsequently a disinhibiting frontal lobe dementia or some type possibly exacerbated by high-dose Cymbalta. Social history:patient in [place]. Completed 12th grade. They just shoved me through. the patient still resents the fact that he was sent through school and never really learned anything. He says that he repeats on a fifth grade level. He currently lives with his . He spent his time watching TV all day. He likes to watch a lot of pornography. Legal history:there is no record of criminal activity, found mediastinal convictions in [place] public record. Past medical history: his medical history continues to be collated. It is considerable. He is attended the pain clinic in the wound care clinic. It is unclear why he is on oxybutynin and Flomax at the same time and his primary complaint is one of a urinary nature. Mental Status Exam: the patient is a sloppily unkempt man who is confined to a wheelchair or bed. His eye contact is good though he wears thick glasses. His speech is very difficult to understand and frequently is required to repeat statements so that they can be clarified. On the [employer] Dementia screen, he scored 14/30 exhibiting significant attentional difficulties. Foreplanning deficit was also demonstrated by a clock face that had all numbers, written in order, on the right side of the clock. Appearance: hygiene is poo; no gross neurological deficits., confined to a wheelchair; AIMS=0 Speech: Speech is of normal rate and rhythm ; he has difficulty annunciating to a degree that makes it difficult to understand what he is saying. Thought processes: Thought processes are abstract. Judgment is not adequate for safety. attention: His focus and attention are significantly impaired.he demonstrates significant impulsivity. Psychotic processes: There is no indication of guarding or paranoia. There is no attention to the internal stimuli. Auditory and visual hallucinations are denied. Judgment: Insight is fair. Problem solving skills are adequate for safety. Orientation: The patient is oriented to person, place time and situation. Memory: no deficits noted in immediate, intermediate, or remote spheres. Attention: The patient is alert and interpersonally engaged. Language: Verbalizations are coherent when they are understood. Fund of knowledge: Fund of knowledge is adequate. Affect/Mood: Affect is irritable with a depressed mood. denies suicidal ideation Affective range appropriate. Psychosis: perception is impaired through cognitive deficit and attentional problems. Diagnoses:delirium?etiology unknown [id number] katy Mild cognitive impairment Cognitive disability Provisional?dementia of unknown type Major depression?currently in remission Generalized anxiety disorder?currently in remission Assessment: Treatment plan: Due to the psychiatric conditions and treatment listed in the Assessment and Plan - the patient requires continued hospitalization. Will provide a safe and therapeutic environment for patient.. Will continue inpatient treatment to allow for medication adjustment and monitoring. Will continue q15 min safety checks. the initial intervention will be to return his Cymbalta dosage back to the level of a year ago - 20 mg daily. Abilify will be maintained at 5 mg daily.Aricept will be discontinued. Namenda will be continued.Klonopin will be discontinued until it is discovered whether this is beneficial or possibly causing a paradoxical reaction. a mood stabilizing agent will be considered.trial of stimulant medication to assist with focus of attention may also be considered.an attempt will be made to assess utility of his medications for urinary dysfunction. Monitor patient's mood, sleep, appetite, and behavior closely. Encourage patient to participate in individual and group therapeutic sessions on the fernandez. Estimated length of stay 5 days The expected benefits and potential side effects of patient's psychiatric medications were discussed with the patient. The patient understands and consents to treatment.CRITERIA FOR DISCHARGE: stable on medications Meds NPU Home Medications Medication Instructions Recorded Confirmed Type aspirin 81 mg tablet,delayed 81 mg PO DAILY 06/05/19 07/17/19 History release dicyclomine 10 mg capsule 10 mg PO QID PRN 06/05/19 07/17/19 History metformin 500 mg tablet 500 mg PO BID 06/05/19 07/17/19 History tamsulosin 0.4 mg capsule 0.4 mg PO BID cap 06/05/19 07/17/19 History atorvastatin 80 mg tablet 80 mg PO DAILY tab 07/02/19 07/17/19 History cholecalciferol (vitamin D3) 400 800 unit PO DAILY cap 07/02/19 07/17/19 History unit capsule spironolactone 25 mg tablet 25 mg PO DAILY tab 07/02/19 07/17/19 History bumetanide 2 mg PO TID 07/08/19 07/17/19 History oxybutynin chloride 5 mg PO BID 07/08/19 07/17/19 History Fiber-Caps (psyllium husk) 1 tab PO DAILY 07/15/19 07/17/19 History acetaminophen-codeine 1 tab PO BID PRN 07/15/19 07/17/19 History [Tylenol-Codeine #4] aripiprazole [Abilify] 5 mg PO DAILY 07/15/19 07/17/19 History diphenhydramine HCl [Banophen] 25 mg PO DAILY 07/15/19 07/17/19 History doxepin 20 mg PO BEDTIME 07/15/19 07/17/19 History esomeprazole magnesium [Nexium] 40 mg PO DAILY 07/15/19 07/17/19 History meloxicam submicronized [Vivlodex] 10 mg PO DAILY 07/15/19 07/17/19 History potassium chloride [K-Tab] 20 meq PO TID 07/16/19 07/17/19 History Allergies Allergy/AdvReac Type Severity Reaction Status Date / Time No Known Allergies Allergy Verified 06/28/19 13:27 PFSH NPU PFSH: Social History Smoking and tobacco status: never smoked Alcohol intake: never Household members: significant other Marital status: Single Current occupational status: disabled Vitals/I&O/Wt Last Vital Signs Temp 97.7 F 07/17/19 14:00 Pulse 104 H 07/17/19 14:00 Resp 20 H 07/17/19 14:00 BP 129/75 07/17/19 14:00 Pulse Ox 94 07/17/19 14:00 Weight last 48 hrs Weight 158.757 kg Data NPU : 07/15/19 21:59 07/15/19 21:59 Involuntary Hold Information 96 Hour Hold: 96 Hour Involuntary Admission: No Attestations NPU Medical Necessity Statement*: patient will remain in the hospital another 5-6 nights for completion of medical assessment. Coding Level of Care Code Acute Green Lumber Grader for Vidya Hoover
[2019-07-17] MEDS: topiramate 25 mg Tablet 50 MG PO (18:01)
[2019-07-17] MEDS: duloxetine 20 mg Capsule PO (18:01)
[2019-07-17] MEDS: memantine 5 mg tablet 10 MG PO (18:04)
--- NOTE | 2019-07-17 18:43 | PC.NURSE ---
PATIENT BECAME SLIGHTLY AGITATED, THROWING HIS GLASSES ON THE FLOOR DURING THIS SHIFT BECAUSE HE WAS UNABLE TO FIND HIS HOODIE IN HIS PATIENT ROOM TRASH. A RESULT OF THIS PT. LENS FELL OUT OF GLASSES AND THEY WERE SLIGHTLY BENT. PATIENT THEN BECAME VERY INSISTENT ON TRYING TO FIX HIS GLASSES AND WHILE DOING SO HE BROKE THEM IN TWO.
[2019-07-17 19:55] VITALS: BP 149/72; PULSE 87; RESP 19; TEMP 37.1; O2SAT 93
[2019-07-17] MEDS: atorvastatin 40 mg Tablet 80 MG PO (20:23)
[2019-07-17] MEDS: doxepin 50 mg Capsule 100 MG PO (20:23)
[2019-07-17] MEDS: bumetanide 1 mg Tablet 2 MG PO (20:23)
[2019-07-18] MEDS: acetaminophen 325 mg Tablet 650 MG PO ×2 (04:47→17:47)
[2019-07-18 06:00] VITALS: BP 129/77; PULSE 99; RESP 19; TEMP 36.5; O2SAT 99
--- NOTE | 2019-07-18 07:09 | PC.NURSE ---
BEHAVIOR PT REPEATEDLY THROUGH THE NIGHT HAS MADE INAPPROPRIATE COMMENTS. HE HAS MADE COMMENTS ABOUT MY BOOBS AND WANTING BLOW JOBS. AFTER TELLING THE PT THAT WAS INAPPROPRIATE BEHAVIOR AND HE NEEDED TO STOP HE SAID WHATS THE BIG DEAL. PT HAD TO BE REDIRECTED NUMEROUS TIMES DURING THE NIGHT.
[2019-07-18 07:18] LABS: Glucose Point of Care 105 mg/dL (70-110)
--- NOTE | 2019-07-18 09:17 | PM.NPN ---
Subjective NPU Subjective: Interval history: Pt complains that he again wet the bed . this is his main complaint. Mental Status Exam MSE Comments: Mental Status Exam: the patient is improved in grooming and hygiene. He is confined to a wheelchair or bed. His eye contact is good . His speech is very difficult to understand and frequently is required to repeat statements so that they can be clarified. On the [facility] Dementia screen, he scored 14/30 exhibiting significant attentional difficulties. Foreplanning deficit was also demonstrated by a clock face that had all numbers, written in order, on the right side of the clock. Appearance: hygiene is fair; no gross neurological deficits., confined to a wheelchair; AIMS=0 Speech: Speech is of normal rate and rhythm ; he has difficulty annunciating to a degree that makes it difficult to understand what he is saying. Thought processes: Thought processes are abstract. Judgment is not adequate for safety. attention: His focus and attention are significantly impaired.he demonstrates significant impulsivity. Psychotic processes: There is no indication of guarding or paranoia. There is no attention to the internal stimuli. Auditory and visual hallucinations are denied. Judgment: Insight is fair. Problem solving skills are adequate for safety. Orientation: The patient is oriented to person, place time and situation. Memory: no deficits noted in immediate, intermediate, or remote spheres. Attention: The patient is alert and interpersonally engaged. Language: Verbalizations are coherent when they are understood. Fund of knowledge: Fund of knowledge is adequate. Affect/Mood: Affect is irritable with a depressed mood. denies suicidal ideation Affective range appropriate. Psychosis: perception is impaired through cognitive deficit and attentional problems. Vitals/I&O/Wt Last Vital Signs Temp 97.7 F 07/18/19 06:00 Pulse 99 07/18/19 06:00 Resp 19 H 07/18/19 06:00 BP 129/77 07/18/19 06:00 Pulse Ox 99 07/18/19 06:00 Data NPU : 07/15/19 21:59 07/15/19 21:59 A&P Additional A&P Information Diagnoses:delirium?etiology unknown Prem-vowkbagmob-dntgzsz katy Mild cognitive impairment Cognitive disability Provisional?dementia of unknown type Major depression?currently in remission Generalized anxiety disorder?currently in remission Assessment: Treatment plan: Due to the psychiatric conditions and treatment listed in the Assessment and Plan - the patient requires continued hospitalization. Will provide a safe and therapeutic environment for patient.. Will continue inpatient treatment to allow for medication adjustment and monitoring. Will continue q15 min safety checks. the initial intervention will be to return his Cymbalta dosage back to the level of a year ago - 20 mg daily. Abilify will be maintained at 5 mg daily.Aricept will be discontinued. Namenda will be continued.Klonopin will be discontinued until it is discovered whether this is beneficial or possibly causing a paradoxical reaction. a mood stabilizing agent will be considered.trial of stimulant medication to assist with focus of attention may also be considered.an attempt will be made to assess utility of his medications for urinary dysfunction. HD#3: continues to exhibit urinary incontinence after stopping flomax. Less volatile and intrusive but still socially inappropriate. It is doubtful that he is going to learn civil behavior while in hospital but perhaps a reduction in irritabilit and impulsivity will reduce his intrusiveness and allow him the opportunity to think befor eresponding. Also not sleeping at night. PLAN: increase Ditropan to 10 mg bid. Add Ativan 2 mg at bedtime; may consider trial of stimulant medication if he continues to be so unfocused and impulsive but also cannot rule out that those were driven by antidepressant induced katy. HD#3 on Cymbalta 20 mg daily instead of 120 mg daily Monitor patient's mood, sleep, appetite, and behavior closely. Encourage patient to participate in individual and group therapeutic sessions on the fernandez. Estimated length of stay 5 days The expected benefits and potential side effects of patient's psychiatric medications were discussed with the patient. The patient understands and consents to treatment.CRITERIA FOR DISCHARGE: stable on medications Involuntary Hold Information 96 Hour Hold: 96 Hour Involuntary Admission: No Attestations NPU Medical Necessity Statement*: Pt will remain in hospital two more nights so that we can get him sleeping and continent of urine Coding Level of Care Code Acute Veterinarian Epidemiologist for Vidya Hoover
[2019-07-18] MEDS: spironolactone 25 mg Tablet PO (09:37)
[2019-07-18] MEDS: topiramate 25 mg Tablet 50 MG PO ×2 (09:37→17:44)
[2019-07-18] MEDS: bumetanide 1 mg Tablet 2 MG PO ×3 (09:37→20:44)
[2019-07-18] MEDS: pantoprazole DR 40 mg Tablet PO (09:37)
[2019-07-18] MEDS: duloxetine 20 mg Capsule PO (09:37)
[2019-07-18] MEDS: metformin 500 mg Tablet PO ×2 (09:37→17:45)
[2019-07-18] MEDS: memantine 5 mg tablet 10 MG PO ×2 (09:37→17:45)
[2019-07-18] MEDS: ARIPiprazole 10 mg Tablet 5 MG PO (09:38)
[2019-07-18 14:00] VITALS: BP 119/78; PULSE 96; RESP 18; TEMP 36.6; O2SAT 96
[2019-07-18] MEDS: oxybutynin 5 mg Tablet 10 MG PO (17:44)
[2019-07-18] MEDS: atorvastatin 40 mg Tablet 80 MG PO (20:44)
[2019-07-18] MEDS: doxepin 50 mg Capsule 100 MG PO (20:44)
[2019-07-18] MEDS: LORazepam 2 mg Tablet PO (20:55)
[2019-07-18 21:31] VITALS: BP 134/81; PULSE 90; RESP 18; TEMP 36.9; O2SAT 93
[2019-07-19 05:58] VITALS: BP 128/79; PULSE 84; RESP 18; TEMP 36.6; O2SAT 95
[2019-07-19 06:30] LABS: Glucose Point of Care 91 mg/dL (70-110)
[2019-07-19] MEDS: acetaminophen 325 mg Tablet 650 MG PO ×3 (07:16→17:28)
[2019-07-19] MEDS: bumetanide 1 mg Tablet 2 MG PO ×2 (08:23→15:27)
[2019-07-19] MEDS: topiramate 25 mg Tablet 50 MG PO ×2 (08:23→17:28)
[2019-07-19] MEDS: memantine 5 mg tablet 10 MG PO ×2 (08:24→17:27)
[2019-07-19] MEDS: duloxetine 20 mg Capsule PO (08:24)
[2019-07-19] MEDS: oxybutynin 5 mg Tablet 10 MG PO ×2 (08:24→17:28)
[2019-07-19] MEDS: ARIPiprazole 10 mg Tablet 5 MG PO (08:24)
[2019-07-19] MEDS: metformin 500 mg Tablet PO ×2 (08:24→17:28)
[2019-07-19] MEDS: spironolactone 25 mg Tablet PO (08:24)
[2019-07-19] MEDS: pantoprazole DR 40 mg Tablet PO (08:24)
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
[2019-07-19 11:16] VITALS: BP 128/79; PULSE 84; RESP 18; TEMP 36.6; O2SAT 95
--- NOTE | 2019-07-19 12:49 | PC.SOCIAL ---
Addendum entered by HERNAN Pérez 07/19/19 15:53: Ride didn't come within 3 hour window. Called [employer] and they said they had to decline the trip. [facility] had not heard from [facility] yet. Called [facility] back and requested they send the trip to [employer], they are trying to do that. [employer] indicated that they would be able to do the trip if it was assigned to them. Original Note: Medicaid ride called, trip ID#[id number]. Trip to come between 12:50pm and 3:50pm. If for some reason the ride does not show up you may call the Where's My Ride number at
[2019-07-19 14:00] VITALS: BP 114/76; PULSE 90; RESP 18; TEMP 36.4; O2SAT 98
[2019-07-19 19:37] VITALS: BP 114/76; PULSE 90; RESP 18; TEMP 36.4; O2SAT 98
== END 2019-07-19 19:38 | disposition home or self-care (01) | DRG 880 ==
LOC: ER 07-16 12:59 → NP 07-16 13:11
PROVIDERS: Family Medicine; Admitting Provider Psychiatry & Neurology Psychiatry; Emergency Provider Family Medicine; Family Provider Family Medicine; PCP Family Medicine; Visit Provider Psychiatry & Neurology Psychiatry
DX: F41.8 Other specified anxiety disorders (principal); Z87.891 Personal history of nicotine dependence
CPT/HCPCS: 12345; 36415; 36416; 70450; 71045; 80053; 80306; 80307; 81003; 82962; 84439; 84443; 84481; 85025; 93005; 96372; 99282; 99284; A9270; J1630; J2060; J3486

== ENCOUNTER 2019-07-20 19:35 | Inpatient (IN) | payer MEDICARE, MEDICAID, SELFPAY ==
[2019-07-20 19:37] VITALS: BP 133/83; PULSE 108; RESP 18; TEMP 36.9; O2SAT 97; BMI 41.8
--- NOTE | 2019-07-20 19:52 | ED_ITS ---
Entered by Keesha Lewis, acting as scribe for Domingo Sanchez DO HPI - Psych General: Chief Complaint: Psychiatric Symptoms Stated Complaint: MENTAL HEALTH EXAM Time Seen by Provider: 07/20/19 19:48 Source: patient Mode of arrival: EMS Limitations: no limitations History of Present Illness: HPI Narrative: 59 yo Male presents to ED with complaint of homicidal ideation. Pt states that he was just discharged from the [facility] yesterday. Pt states that he is psycho and wants to kill everyone. Pt states that he wants to hurt everyone but he doesn't want to go to intermediate. Pt states that he doesn't know what he was admitted for on his previous admission because he has dementia. Pt states that he wants to ring their necks . MD complaint: other (homicidal ideation) Onset (ago): day(s) Duration: constant History of same: No Relieving factors: none Exacerbating factors: none Associated psychiatric symptoms: homicidal ideation Associated symptoms: Reports homicidal ideation; Deny suicidal ideation Treatments prior to arrival: none Review of Systems Const: Denies: fever, chills, body aches, fatigue, malaise or night sweats Eyes: Denies: change in vision or blurry vision ENMT: Denies: throat pain, oral sores/lesions, dental pain, nasal discharge or nasal congestion Card: Denies: chest pain, palpitations, irregular heart rhythm, edema, syncope, shortness of breath on exertion, shortness of breath when lying down or leg pain with exertion Resp: Denies: shortness of breath, productive cough, non-productive cough or wheezing GI: Denies: abdominal pain, nausea, vomiting, vomiting blood, coffee grounds in vomit, difficulty swallowing, heartburn/indigestion, diarrhea, constipation, cramping, blood in stool or black tarry stool : Denies: flank pain, difficulty urinating, painful urination, urinary frequency, urinary urgency, urinary incontinence or blood in urine Musc: Denies: neck pain, back pain, extremity pain, extremity swelling, joint pain or joint swelling Skin/Breast: Denies: rash, itching or redness Neuro: Denies: headache, numbness in extremities, weakness in extremities, changes in sensation, lack of coordination, difficulty walking, frequent falls, dizziness, vertigo or confusion Psych: Reports: homicidal ideation; Denies: suicidal ideation Endo: Denies: excessive urination, excessive thirst, tired all the time or cold intolerance Deon/Lymph: Denies: easy bruising, easy bleeding, petechiae, enlarged lymph nodes or tender lymph nodes PFSH ED PFSH: Medical History Anxiety and depression CHF (congestive heart failure) Diabetes Generalized anxiety disorder GERD (gastroesophageal reflux disease) Hemorrhoids Hip arthritis Impaired mobility and activities of daily living Leg ulcer Major depressive disorder, recurrent severe without psychotic features Overflow incontinence of urine Urinary retention Surgical History H/O circumcision H/O elbow surgery H/O hernia repair History of colonoscopy Family History (Updated 07/22/19 @ 11:15 by Hanna Montilla DO) Brother Heart disease Mother Cancer stomach Father Cancer colon cancer CAD (coronary artery disease) Denies family history of Anesthesia complication Bleeding disorder Social History Smoking and tobacco status: former smoker Alcohol intake: never Household members: significant other Marital status: Single Current occupational status: disabled Physical Exam Const: COMMON NORMALS: average body habitus, oriented x3 and alert GENERAL APPEARANCE: cooperative, comfortable, well kempt and well developed NUTRITIONAL APPEARANCE: obese ORIENTATION/CONSCIOUSNESS: Yes awake, Yes oriented to person and Yes oriented to place HENMT: COMMON NORMALS: normocephalic, head/scalp atraumatic, EAC's normal, TM's normal bilaterally, external nose normal, moist oral mucous membranes and oropharynx normal HEAD & SCALP: normocephalic and atraumatic NOSE: external nose normal EXTERNAL AUDITORY CANAL: EAC's normal TYMPANIC MEMBRANE: TM's normal bilaterally MOUTH: oral and palatal mucosa normal, lip normal and tongue normal THROAT: posterior oropharynx normal and tonsils normal Eye: COMMON NORMALS: PERRL, EOMs intact bilaterally, conjunctivae normal and no scleral icterus CONJUNCTIVA: Yes conjunctivae normal PUPIL: Yes PERRL Neck/C-Spine: COMMON NORMALS: full ROM, no lymphadenopathy, supple, no meningeal signs and thyroid normal THYROID: thyroid normal and asymmetrical Lymph: LYMPHATIC: no lymphadenopathy noted Resp: COMMON NORMALS: normal respiratory effort, no retractions, no use of accessory muscles and clear to auscultation bilaterally AUSCULTATION: clear to auscultation bilaterally Cardio: COMMON NORMALS: regular rate and regular rhythm RATE: regular rate RHYTHM: regular rhythm HEART SOUNDS: no murmurs GI: COMMON NORMALS: normal to inspection, nondistended, normoactive bowel sounds, soft to palpation and no hepatosplenomegaly PALPATION: Yes soft and Yes no hepatosplenomegaly : COMMON NORMALS: Yes no CVA tenderness BLADDER/KIDNEY EXAM: Yes no CVA tenderness Back/Pelvis: COMMON NORMALS: no CVA tenderness LUMBAR SPINE/LOWER BACK: Yes normal to inspection Extremity: COMMON NORMALS: no clubbing, cyanosis or edema, no calf tenderness and no pedal edema RIGHT LOWER EXTREMITY: Yes lower leg (wounds being treated by wound care) Right lower leg: Yes inspection LEFT LOWER EXTREMITY: Yes lower leg (wounds being treated by wound care) Left lower leg: Yes inspection Neuro: COMMON NORMALS: oriented x3 SENSORIUM/ORIENTATION: Yes alert, Yes oriented to person and Yes oriented to place MENINGEAL SIGNS: Yes no meningeal signs Psych: APPEARANCE: Yes well kempt Skin: COMMON NORMALS: no rashes or lesions noted and skin turgor normal GENERAL SKIN EXAM: no rashes or lesions noted and turgor normal MDM - Psych Lab Data: Labs: Lab Results 07/20/19 Range/Units 19:45 Urine Color Yellow (Yellow) Urine Appearance Clear (CLEAR) Urine pH 6 (5-7) Ur Specific Gravit y 1.015 (1.005-1.030) Urine Protein Neg (Negative) Urine Glucose (UA) Norm (Normal) Urine Ketones Negative (Negative) Urine Blood Neg (Negative) Urine Nitrate Negative (Negative) Urine Bilirubin Neg (NEGATIVE) Urine Urobilinogen Norm (Negative) mg/dL Ur Leukocyte Alie ase Negative (Negative) Discharge Plan Discharge Patient Disposition: Admitted As Inpatient Admit Provider: Dima Hinton Clinical Impression: Homicidal ideation, Impaired mobility and activities of daily living, Major depressive disorder, recurrent, in remission, unspecified, Delirium due to conditions classified elsewhere Condition: Stable Discharge Orders: Discharge Order (Routine); Ordered 07/22/19 Ordered By: Angelo Stephens Referrals: Amadeo Vizcaino MD [Physician] - 08/22/19 1:05 pm (2 month follow up) Carolee Best MD [Physician] - 08/28/19 11:15 am (Follow up at [place] office) Bo Waters MD [Physician] - 08/12/19 12:45 pm (6 week check) Jenn Mcgowan MD [Primary Care Provider] - 07/30/19 9:00 am Discharge Activity: Resume usual activity and Wheelchair as instructed Additional Instructions: You will need to get an outpatient stress test. Centralized scheduling will call you to set this up [phone] ext. [phone]. Interventions: ED Discharge Assessment Last Done: 07/20/19 21:20 Discharge Date/Time: 07/20/19 21:22 Coding Level of Care Code ED Concrete Gun Operator for Chg Fwd Exam Comprehensive The documentation recorded by the Joshua penaloza Carmen, accurately reflects the service I personally performed and the decisions made by , Domingo Sanchez DO Jul 20, 2019 19:35
[2019-07-20 20:35] LABS: Basophils % 0.6 %; Eosinophils # 0.2 10^3/uL (0.0-0.8); Eosinophils % 2.7 %; Hematocrit 38.9 % (42.0-52.0); Hemoglobin 12.1 g/dL (11.7-16.6); Lymphocytes # 0.7 10^3/uL (0.8-4.8); Mean Corpuscular HGB Conc 31.1 g/dL (30.0-36.0); Mean Corpuscular Hemoglobin 25.7 pg (28.0-34.0); Mean Corpuscular Volume 82.8 fL (80-94); Mean Platelet Volume 10.2 fL (7.4-10.4); Monocytes # 0.6 10^3/uL (0.2-0.9); Monocytes % 8.1 %; Neutrophils # 5.4 10^3/uL (1.8-7.7); Neutrophils % 78.5 %; Nucleated Red Blood Cells % 0 %; Platelet Count 217 10^3/cmm (130-400); Red Cell Distribution Width 16.7 % (12.1-15.1); White Blood Count 6.9 10^3/uL (4.0-10.0)
[2019-07-20 20:37] LABS: Add Urine Microscopic? NO
[2019-07-20 20:44] LABS: Bilirubin Urine Neg (NEGATIVE); Blood Urine Neg (Negative); Glucose Urine UA Norm (Normal); Ketones Urine Negative (Negative); Leukocyte Esterase Urine Negative (Negative); Nitrate Urine Negative (Negative); Protein Urine Neg (Negative); Specific Gravity, Urine 1.015 (1.005-1.030); Urine Appearance Clear (CLEAR); Urine Color Yellow (Yellow); Urobilinogen Urine Norm (Negative); pH Urine 6 (5-7)
[2019-07-20 20:48] LABS: Alanine Aminotransferase 18 U/L (0-41); Albumin Level 4.1 g/dL (3.5-5.2); Alkaline Phosphatase 111 IU/L (40-130); Anion Gap 16.5 (5-19); Aspartate Amino Transferase 24 U/L (0-40); Blood Urea Nitrogen 22 mg/dL (6-20); Carbon Dioxide 28 mmol/L (22-29); Chloride 97 mmol/L (98-107); Globulin 3.6 g/dL (1.3-4.6); Glomerular Filtration Rate 62.2 mL/min (90-130); Glucose 120 mg/dL (65-115); Potassium 3.5 mmol/L (3.5-5.1); Sodium 138 mmol/L (136-145); Total Bilirubin 0.4 mg/dL (0.15-1.2); Total Protein 7.7 g/dL (6.6-8.7)
[2019-07-20 21:00] LABS: Acetaminophen < 5.0 ug/mL (10-30); Alcohol Level < 10 mg/dL (0-10); Salicylate < 0.3 mg/dL (3-10)
[2019-07-20 21:20] VITALS: BP 146/68; PULSE 101; RESP 18; O2SAT 96
[2019-07-20 21:32] VITALS: BP 115/73; PULSE 100; RESP 21; TEMP 36.9; O2SAT 96
[2019-07-20] MEDS: OLANZapine ODT 5 MG TABLET PO (22:20)
[2019-07-20] MEDS: trazodone 50 mg Tablet PO (22:20)
[2019-07-21] MEDS: haloperidol 5 mg Tablet PO (00:55)
[2019-07-21] MEDS: acetaminophen-codeine 300-30mg Tablet 1 TAB PO (03:01)
[2019-07-21 06:00] VITALS: RESP 20
[2019-07-21 06:15] LABS: Glucose Point of Care 108 mg/dL (70-110)
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
[2019-07-21] MEDS: duloxetine 20 mg Capsule PO (08:24)
[2019-07-21] MEDS: spironolactone 25 mg Tablet PO (08:24)
[2019-07-21] MEDS: topiramate 25 mg Tablet 50 MG PO ×2 (08:24→17:31)
[2019-07-21] MEDS: metformin 500 mg Tablet PO ×2 (08:24→17:32)
[2019-07-21] MEDS: oxybutynin 5 mg Tablet 10 MG PO ×2 (08:24→17:32)
[2019-07-21] MEDS: atorvastatin 40 mg Tablet 80 MG PO (08:24)
[2019-07-21] MEDS: memantine 5 mg tablet 10 MG PO ×2 (08:24→17:31)
[2019-07-21] MEDS: bumetanide 1 mg Tablet 4 MG PO ×2 (08:25→17:32)
[2019-07-21] MEDS: ARIPiprazole 10 mg Tablet 5 MG PO (08:25)
[2019-07-21] MEDS: psyllium powder Pkt 1 PACKET PO (09:45)
[2019-07-21 14:00] VITALS: BP 120/70; PULSE 84; RESP 18; TEMP 36.8; O2SAT 97
[2019-07-21] MEDS: hyDROXYzine 25 mg Capsule 50 MG PO (15:14)
[2019-07-21] MEDS: OLANZapine ODT 5 MG TABLET PO (15:14)
--- NOTE | 2019-07-21 15:14 | PC.NURSE ---
PT NOTE: PT GIVEN VISTARIL 50MG AND ZYPREXA ZYDIS 5MG FOR ANXIETY/AGITATION. PT YELLING OUTLOUD AND IN DOING SO IS DISTURBING OTHERS.
[2019-07-21] MEDS: ziprasidone hcl 60 mg Capsule PO (15:53)
--- NOTE | 2019-07-21 16:33 | PM.NHP ---
Providers/Chief Complaint Admitting Physician: Dima Hinton MD Primary Care Provider: Jenn Mcgowan MD Chief Complaint: MENTAL HEALTH EXAM HPI NPU History of Present Illness David Sánchez is a 59 year old male who is readmitted in crisis from 24hours after discharge. The reader is referred to the documentation of his previous hospitalization, a portion of which is recounted below. Is not possible to get a coherent history from him and that he becomes increasingly agitated and had to be medicated to calm him down. I will find out what happened when he is more coherent. The following will offer some understanding: David Sánchez is an alert 59-year-old man with multiple medical problems and significant psychosocial stressors who was admitted from the emergency room after he became violent at home. He had been to the emergency room earlier in the day. The initial emergency room report reads as follows: HPI narrative: Patient is a 59-year-old male who presents to ED today stating he believes he is overdosing himself on medications. She is girlfriend wanted him to come to the emergency department because he was acting loopy . The girlfriend places his medication in a pill dispenser and states he is scheduled to take medications 4 times daily. He states when he misses his morning dose he will often take his morning and noon doses together. Patient has a history of dementia as well as intellectual delays. He is his own guardian. Girlfriend is at home currently and according to EMS also has intellectual disabilities. After a thorough evaluation, no acute problem was discovered and it was recommended he return home and be seen by his outpatient physicians. However, when he returned home, he found his door was locked and nobody was there. The patient has a long history of poor emotional control apparently for a variety of reasons. He became angered. An ambulance was called resulting in the next ER physician note: 59 yo male presents to ED stating he is freaking out. He said he has too many medications to choose from. He keeps saying he has a lot of medications and he wants them taken away. He said f it!!! I don't want them anymore . He knows he has a 5th-grade reading level and he just takes what he is told. The patient has chronic dementia and does not understand problems. His significant other who is also his caregiver and her son came later down and explained what has been going on. When the patient got home today after his initial ED visit he locked him out of the house, he had ripped the screen door off. He also was breaking stuff in the house and threatening to harm himself and to harm his caregiver. Because of his outburst and violence the ambulance was called to bring him back to the hospital for psychiatric evaluation. He was discharged yesterday and lasted about as long as a Snowball on a spring day. He returns to us, escalating, agitated, and profoundly anxious. He is overwhelmed by everyday life. I think his days of autonomy are coming to an end. PErtinent psychiatric history: 08/07/14 Major depression and Generalized anxiety disorder Medicatioins: Abilify 5 milligrams daily, Cymbalta 20 milligrams two daily for a total of 40 milligrams daily and Klonopin 0.5 milligrams twice daily. 12/04/2018 Outpatient history and physical indicates active on: Abilify 2 mg daily Cymbalta 20 mg daily Topamax 25 mg bid 03/11/2019 [facility] mental health progress note indicates he is active on: Abilify 2 mg daily Cymbalta 60 mg two tablets daily Topamax 50 mg one by mouth twice a day Klonopin 0.5 mg twice daily as needed for anxiety; discussed titration, especially in case patient starts receiving opioids from pain management on regular basis. Home meds listed on admission: Abilify 5 mg bid, Aricept 5 mg/d, duloxetine 120 mg/d, Namenda 5 mg bid, Topamax 25 mg bid, clonazepam 0.5 mg bid, doxepin 20 mg at bedtime Working assessment the time of admission was that he was demonstrating frontal lobe release behaviors subsequently a disinhibiting frontal lobe dementia or some type possibly exacerbated by high-dose Cymbalta. Review of Systems Narrative: Please see prior admission. Meds NPU Home Medications Medication Instructions Recorded Confirmed Type atorvastatin 80 mg PO DAILY 07/20/19 07/20/19 History bumetanide 4 mg PO BID 07/20/19 07/20/19 History cholecalciferol (vitamin D3) 800 unit PO DAILY 07/20/19 07/20/19 History [Vitamin D3] potassium chloride 20 meq PO TID 07/20/19 07/20/19 History psyllium husk [Fiber (psyllium 0.4 g PO DAILY 07/20/19 07/20/19 History husk)] spironolactone 25 mg PO DAILY 07/20/19 07/20/19 History Allergies Allergy/AdvReac Type Severity Reaction Status Date / Time No Known Allergies Allergy Verified 06/28/19 13:27 PFSH NPU PFSH: Social History Smoking and tobacco status: former smoker Alcohol intake: never Household members: significant other Marital status: Single Current occupational status: disabled Mental Status Exam MSE Comments: The patient is a sloppily unkempt man who is confined to a wheelchair or bed. His eye contact is good. His speech is very difficult to understand and frequently is required to repeat statements so that they can be clarified. On the [facility] Dementia screen, he scored 14/30, exhibiting significant attentional difficulties. Foreplanning deficit was also demonstrated by a clock face that had all numbers, written in order, on the right side of the clock. Appearance: hygiene is poor. No gross neurological deficits. Confined to a wheelchair. Speech: Speech is of normal rate and rhythm; he has difficulty annunciating to a degree that makes it difficult to understand what he is saying. Thought processes: Thought processes are abstract. Judgment is not adequate for safety and he is bereft of insight. Attention: His focus and attention are significantly impaired. He demonstrates significant impulsivity. Psychotic processes: There is no indication of guarding or paranoia. There is no attention to internal stimuli. Auditory and visual hallucinations are denied. Problem solving skills are not adequate for safety. Orientation: The patient is oriented to person, place time and situation. Memory: no deficits noted in immediate, intermediate, or remote spheres. Attention: The patient is alert and interpersonally engaged. Language: Verbalizations are coherent when they are understood. Fund of knowledge: Fund of knowledge is adequate. Affect/Mood: Affect is irritable with a depressed mood. He denies suicidal ideation. Affective range is wildly labile. Psychosis: perception is impaired through cognitive deficit and attentional problems. Vitals/I&O/Wt Last Vital Signs Temp 98.2 F 07/21/19 14:00 Pulse 84 07/21/19 14:00 Resp 18 07/21/19 14:00 BP 120/70 07/21/19 14:00 Pulse Ox 97 07/21/19 14:00 Weight last 48 hrs Weight 290 lb Weight 290 lb 8 oz Weight 300 lb Data NPU : 07/20/19 20:24 07/20/19 20:24 A&P Assessment and plan (1) Dodie: The patient's prior treatment will be reinstated, including continuation of pharmacotherapy and investigation of placement options. Status: Acute Code(s): F30.9 - Manic episode, unspecified (2) Noncompliance with medication regimen: Status: Acute Code(s): Z91.14 - Patient's other noncompliance with medication regimen (3) Generalized anxiety disorder: This patient is unable to fend for himself or to reliably administer medications. Placement is a preferable option for him. Status: Acute Code(s): F41.1 - Generalized anxiety disorder Involuntary Hold Information 96 Hour Hold: 96 Hour Involuntary Admission: No Attestations NPU Medical Necessity Statement*: This patient cannot be gotten safely out of the hospital without increased support. It will take time to develop this. I anticipate 5-7 additional midnights. Time Spent in Patient Care: Greater than 35 minutes (>than 50% of time spent in counselling and/or direct pt care on unit). Coding Level of Care Code Acute Air Support Operations Operator for Kizzyg Fwd Diagnoses Dodie F30.9 Noncompliance with medication regimen Z91.14 Generalized anxiety disorder F41.1
[2019-07-21] MEDS: acetaminophen 325 mg Tablet 650 MG PO (18:34)
[2019-07-21] MEDS: trazodone 50 mg Tablet PO (20:19)
[2019-07-21] MEDS: doxepin 50 mg Capsule 100 MG PO (20:19)
[2019-07-21 22:00] VITALS: BP 126/74; PULSE 86; RESP 21; TEMP 36.5; O2SAT 96
--- NOTE | 2019-07-22 03:12 | PC.NURSE ---
PATIENT HAS DONE FAIR SO FAR TONIGHT. ATTEMPTED TO GRAB AIDES ARM WE WERE CHANGING HIS BED. INST TO NOT TOUCH STAFF. YELLING OUT OFTE, UNABLE TO UNDERSTAND WHAT HE IS SAYING. CONTINUES TO HAVE A MALE 1-1 SITTER.
--- NOTE | 2019-07-22 05:04 | PC.NURSE ---
THIS NURSE SITTING WITH PT WHILE MALE SITTER ON BREAK. PT ASKING NURSE ARE YOU , HOW OLD ARE YOU , ARE YOU . WHEN NURSE INFORMS PT HE IS BEING INAPPROPRIATE AND THIS IS UNACCEPTABLE, PT THEN STATES I WANT TO LICK YOUR PUSSY, I NEED TO SCREW SECURITY ARRIVED TO SIT WITH PT.
[2019-07-22 06:00] VITALS: BP 130/94; PULSE 82; RESP 20; TEMP 36.4; O2SAT 94
--- NOTE | 2019-07-22 07:24 | PM.NPN ---
Subjective NPU Subjective: Interval history: The patient has been abusive and insulting to the female nursing staff throughout the night. One wonders if he might not benefit from lithium, often effective with persistent hostility. Unfortunately, his renal parameters are worrisome and this approach is precluded. We may have misdiagnosed him. He is bereft of insight and judgement, as per frontal lobe pathology. Medications: Reviewed: Yes Medication Review Details: He is only on aripiprazole 5 mg daily, which in his case is but a burp in a windstorm. I?ll discontinue it and aggressively titrate pharmacotherapy orally and the staff will observe closely. Mental Status Exam MSE Comments: The patient is a sloppily unkempt man who is confined to a wheelchair or bed. Eye contact is good. Speech is understandable and I never had to ask him to repeat statements so that they can be clarified. No gross neurological deficits. He can stand to brush his teeth. Speech is of normal rate and rhythm and can be understood. There is no dysarthria, aprosody or pressure. Thought processes are abstract. Judgment may be returning. I confronted him with his rudeness to the nurses and he acknowledged this was true. His focus and attention are improved. He demonstrates significant awareness today. There is no attention to internal stimuli. He denies auditory and visual hallucinations. Problem solving skills are improved. Affect is no longer irritable and mood actually seems cheerful. He denies suicidal ideation. Affective range is normal. No deficits noted in immediate, intermediate, or remote memory spheres. Perception is impaired through cognitive deficit and attentional problems. Behavior: Patient Behavior: Cooperative Attitude Description: Cooperative Emotional State Description: Alert, Interested, Irritable and At Ease Speech Pattern: Clear Voice Loudness: Moderately Loud Restraint Use Risk: Mental Disorder and Psych Facility Resident Vitals/I&O/Wt Last Vital Signs Temp 97.6 F 07/22/19 06:00 Pulse 82 07/22/19 06:00 Resp 20 H 07/22/19 06:00 BP 130/94 07/22/19 06:00 Pulse Ox 94 07/22/19 06:00 Weight last 48 hrs Weight 290 lb Weight 290 lb 8 oz Weight 300 lb Data NPU : 07/20/19 20:24 07/20/19 20:24 A&P Assessment and plan (1) Dodie: This patient is been persistently agitated, although he is much calmer and even friendly today. He has a diagnosis of manic state. His renal parameters preclude lithium. I will try to titrate cautiously with olanzapine Zydis, as recommended by the online guidelines. Status: Acute Code(s): F30.9 - Manic episode, unspecified Involuntary Hold Information 96 Hour Hold: 96 Hour Involuntary Admission: No Attestations NPU Medical Necessity Statement*: This patient may be stabilizing. Unfortunately, this is the first day of improvement. I anticipate 2-4 midnights hospitalization. Time Spent in Patient Care: (>than 50% of time spent in counselling and/or direct pt care on unit). I spent about an hour formulating care and addressing his unstable behavior. Coding Level of Care Code Acute Recreation Therapy Teacher for Vidya Hoover Diagnoses Dodie F30.9
[2019-07-22] MEDS: OLANZapine ODT 5 MG TABLET PO (09:13)
[2019-07-22] MEDS: atorvastatin 40 mg Tablet 80 MG PO (09:13)
[2019-07-22] MEDS: metformin 500 mg Tablet PO (09:13)
[2019-07-22] MEDS: oxybutynin 5 mg Tablet 10 MG PO (09:13)
[2019-07-22] MEDS: spironolactone 25 mg Tablet PO (09:14)
[2019-07-22] MEDS: topiramate 25 mg Tablet 50 MG PO (09:14)
[2019-07-22] MEDS: memantine 5 mg tablet 10 MG PO (09:14)
[2019-07-22] MEDS: duloxetine 20 mg Capsule PO (09:14)
[2019-07-22] MEDS: bumetanide 1 mg Tablet 4 MG PO (09:14)
[2019-07-22] MEDS: hyDROXYzine 25 mg Capsule 50 MG PO (09:55)
--- NOTE | 2019-07-22 09:55 | PC.NURSE ---
PRN VISTARIL VISTARIL 50MG PO PER PT C/O ANXIETY. WILL CONTINUE TO MONITOR FOR MEDICATION EFFECTIVENESS.
--- NOTE | 2019-07-22 10:29 | ECG_ITS ---
Measurements Intervals [place] Rate: 84 P: 35 FL: 194 QRS: 81 QRSD: 113 T: 40 QT: 365 QTc: 433 SINUS RHYTHM INDETERMINATE AXIS POSSIBLE ANTERIOR MYOCARDIAL INFARCTION [30 ms Q WAVE IN V3/V4, OR R < 0.2 mV IN V4], OF INDETERMINATE AGE Compared to ECG 07/15/2019 12:39:58 Indeterminate axis now present Myocardial infarct finding now present Intraventricular conduction delay no longer present Electronically Signed On 07-22-2019 15:29:00 VULNERABILITY RESEARCHER by Nicole Celaya M.D. [email or web address]
[2019-07-22] MEDS: acetaminophen 325 mg Tablet 650 MG PO ×2 (10:43→14:56)
--- NOTE | 2019-07-22 11:00 | PC.NURSE ---
PRN VISTARIL FOLLOW UP MEDICATION EFFECTIVE. NO FURTHER C/O ANXIETY.
--- NOTE | 2019-07-22 11:09 | PC.NURSE ---
1005 PATIENT C/O OF ANXIETY, BLOOD PRESSURE TAKEN 138/82, VISTARIL 50 MG GIVEN FOR ANXIETY. 1030 PATIENT REPORTS FEELING CHEST PAIN AND THAT HE STILL FEELS ANXIOUS, REPORTS FEELING PAIN IN LEFT ARM AND CHEST. INFORMED EKG AND TROPONIN ORDERED. 1037 EKG COMPLETED, RESULTS PRESENTED TO DR. COTA, HOSPITALIST INFORMED BY PHYSICIAN. 1051 LAB HERE TO DRAW FIRST TROPONIN. 1119 PATIENT UP AND CHANGING CLOTHES, REPORTS HIS PAIN IN HIS LEFT ELBOW TO BE AN 8 ON THE 1-10 PAIN SCALE.
--- NOTE | 2019-07-22 11:10 | PM.CONSULT ---
Providers/Reason For Consult Consulting Physican/Specialty*: Hanna Montilla DO/hospitalist Reason for Consult*: Chest pain Requesting Physcian: Dr. Stephens, psychiatrist Attending Physician: Dima Hinton MD Primary Care Provider: Jenn Mcgowan MD History of Present Illness History of Present Illness David Sánchez is a 59 year old male with a past medical history of diabetes, hypertension, diastolic congestive heart failure and chronic lower extremity ulcers that is currently hospitalized in the neuropsychiatric unit. He was reported to have chest pain this morning while sitting in group therapy therefore consultation was called for further evaluation and treatment. Patient reported that his chest pain was located in the center of his chest radiating to the left shoulder, occurred at rest. He denied any aggravating factors, denied any alleviating factors. Patient denies any shortness of breath, diaphoresis, palpitations with this episode. He reports having stress test in the past but reported that it is been several years ago. He denies having any exertional chest pain over the past several weeks. He was able to get up and go to the bathroom after this episode occurred and did not have any continued chest pain, stated that it actually resolved. Patient noted some occasional cough and sinus drainage, denies any fevers or chills. Review of Systems Const: Denies: fever or chills Eyes: Denies: change in vision ENMT: Reports: nasal congestion Card: Reports: chest pain and edema; Denies: palpitations Resp: Reports: non-productive cough; Denies: shortness of breath or coughing up blood GI: Denies: abdominal pain, nausea, vomiting, diarrhea, constipation, blood in stool or black tarry stool : Denies: painful urination or blood in urine Musc: Denies: extremity pain or muscle cramps Skin/Breast: Denies: rash or new lesion Neuro: Denies: headache or dizziness Psych: Denies: anxiety or depression Endo: Denies: excessive urination or hot flashes Deon/Lymph: Denies: easy bruising or easy bleeding Meds/Allergies Home Medications and Allergies Home Medications Medication Instructions Recorded Confirmed Type atorvastatin 80 mg PO DAILY 07/20/19 07/20/19 History bumetanide 4 mg PO BID 07/20/19 07/20/19 History potassium chloride 20 meq PO TID 07/20/19 07/20/19 History spironolactone 25 mg PO DAILY 07/20/19 07/20/19 History Allergies Allergy/AdvReac Type Severity Reaction Status Date / Time No Known Allergies Allergy Verified 06/28/19 13:27 Current Medications Current Medications Generic Name Dose Route Start Last Admin Trade Name Freq PRN Reason Stop Dose Admin Acetaminophen 650 mg 07/20/19 22:03 07/22/19 10:43 Tylenol PO 650 mg Q4H PRN Administration MILD PAIN Acetaminophen/Codeine Phosphate 1 tab 07/20/19 22:53 07/21/19 03:01 Tylenol #3 PO 1 tab BID PRN Administration Pain Atorvastatin Calcium 80 mg 07/21/19 09:00 07/22/19 09:13 Lipitor PO 80 mg DAILY MARLEY Administration Bumetanide 4 mg 07/21/19 09:00 07/22/19 09:14 Bumex PO 4 mg BID MARLEY Administration Doxepin HCl 100 mg 07/21/19 21:00 07/21/19 20:19 Sinequan PO 100 mg BEDTIME MARLEY Administration Haloperidol 5 mg 07/20/19 22:03 07/21/19 00:55 Haldol PO 5 mg Q4H PRN Administration AGITATION Hydroxyzine Pamoate 50 mg 07/20/19 22:03 07/22/19 09:55 Vistaril PO 50 mg Q6H PRN Administration ANXIETY Metformin HCl 500 mg 07/21/19 09:00 07/22/19 09:13 Glucophage PO 500 mg BID MARLEY Administration Non-Formulary Medication 800 unit 07/21/19 09:00 07/22/19 10:46 Cholecalciferol (Vitamin D3) [Vitamin D3] PO Not Given DAILY [facility] Olanzapine 5 mg 07/20/19 22:03 07/21/19 15:14 Zyprexa Zydis PO 5 mg Q4H PRN Administration Agitation/Psychosis Olanzapine 5 mg 07/22/19 09:00 07/22/19 09:13 Zyprexa Zydis PO 5 mg BID MARLEY Administration Oxybutynin Chloride 10 mg 07/21/19 09:00 07/22/19 09:13 Ditropan PO 10 mg BID MARLEY Administration Potassium Chloride 20 meq 07/21/19 09:00 07/22/19 09:14 Klor-Con 10 PO 20 meq TID MARLEY Administration Psyllium Hydrophilic Mucilloid 1 packet 07/21/19 09:00 07/21/19 09:45 Metamucil PO 1 packet DAILY MARLEY Administration Spironolactone 25 mg 07/21/19 09:00 07/22/19 09:14 Aldactone PO 25 mg DAILY MARLEY Administration Topiramate 50 mg 07/21/19 09:00 07/22/19 09:14 Topamax PO 50 mg BID MARLEY Administration Trazodone HCl 50 mg 07/20/19 22:53 07/21/19 20:19 Desyrel PO 50 mg BEDTIME PRN Administration Sleep PFSH Acute PFSH: Medical History Anxiety and depression CHF (congestive heart failure) Diabetes Generalized anxiety disorder GERD (gastroesophageal reflux disease) Hemorrhoids Hip arthritis Impaired mobility and activities of daily living Leg ulcer Major depressive disorder, recurrent severe without psychotic features Overflow incontinence of urine Urinary retention Surgical History H/O circumcision H/O elbow surgery H/O hernia repair History of colonoscopy Family History (Updated 07/22/19 @ 11:15 by Hanna Montilla DO) Brother Heart disease Mother Cancer stomach Father Cancer colon cancer CAD (coronary artery disease) Denies family history of Anesthesia complication Bleeding disorder Social History Smoking and tobacco status: former smoker Alcohol intake: never Household members: significant other Marital status: Single Current occupational status: disabled Vitals/I&O/Wt Last Vital Signs Temp 97.6 F 07/22/19 06:00 Pulse 82 07/22/19 06:00 Resp 20 H 07/22/19 06:00 BP 130/94 07/22/19 06:00 Pulse Ox 94 07/22/19 06:00 Weight last 48 hrs Weight 131.542 kg Weight 131.769 kg Weight 136.078 kg Physical Exam Const: COMMON NORMALS: alert GENERAL APPEARANCE: cooperative ORIENTATION/CONSCIOUSNESS: Yes awake, Yes oriented to person and Yes oriented to place HENMT: COMMON NORMALS: normocephalic and head/scalp atraumatic HEAD & SCALP: normocephalic and atraumatic Eye: COMMON NORMALS: PERRL PUPIL: Yes PERRL Neck/C-Spine: COMMON NORMALS: supple GENERAL: Yes normal visual inspection Resp: COMMON NORMALS: normal respiratory effort and clear to auscultation bilaterally EFFORT & INSPECTION: Yes able to speak in complete sentences AUSCULTATION: clear to auscultation bilaterally, no rhonchi and no wheezes Cardio: COMMON NORMALS: regular rate, regular rhythm and no murmurs RATE: regular rate RHYTHM: regular rhythm GI: COMMON NORMALS: soft to palpation and non-tender INSPECTION: No abdominal distension AUSCULTATION: Yes normoactive bowel sounds PALPATION: Yes soft Extremity: OTHER: Lower extremity edema, right greater than left with chronic venous stasis, chronic venous stasis ulcer over the right anterior penaloza with mild amount of serosanguineous drainage Neuro: COMMON NORMALS: CN's II-XII intact bilaterally, moves all extremities and no focal motor deficits SENSORIUM/ORIENTATION: Yes alert, Yes oriented to person and Yes oriented to place SPEECH: speech normal Psych: COMMON NORMALS: cooperative A&P Assessment and plan (1) Chest pain: Initial EKG reviewed, no acute changes compared to prior EKG We will obtain serial EKG and troponin Patient's pain had resolved at time of consultation, resolved with activity. Patient was ambulating from the bathroom at time of initial exam and did not have any further chest pain, no associated shortness of breath. Based on his description it appears to be very atypical and nonanginal in nature, however he does have risk factors for coronary artery disease and would recommend an outpatient stress test following discharge. Aspirin and nitro as needed for chest pain, no reports chest pain has resolved Repeat chest x-ray reviewed, no acute cardiopulmonary process Status: Acute Code(s): R07.9 - Chest pain, unspecified Additional A&P Information Diabetes mellitus: On home metformin Hypertension: Continue on Bumex, Aldactone Diastolic congestive heart failure: Echocardiogram from 06/27/2018 reviewed, LVEF of 63%, grade 1 diastolic dysfunction. On Bumex 4 mg twice daily Chronic venous stasis changes with venous stasis ulceration: Followed by wound care, continue with lower extremity wraps Hyperlipidemia: Continue home statin Dementia: On Namenda Would recommend outpatient follow-up with his primary care provider in 2 to 3 days. Recommend patient to be set up with outpatient stress test as soon as first appointment is available. He is to return to the ER for any acute worsening of chest pain, shortness of breath on exertion or any other acute illness or concern. Consult Attestations Medical Necessity Statement: Per primary team Coding Level of Care Code Acute Carpet Inspector Finished for Kizzyg Fwd Exam Comprehensive Diagnoses Chest pain R07.9
[2019-07-22 11:16] LABS: Troponin(5th) Baseline 29 ng/mL (0-15)
--- NOTE | 2019-07-22 11:20 | XRR_ITS ---
PROCEDURE INFORMATION: Exam: XR Chest, 2 Views Exam date and time: 07/22/2019 12:03 PM Age: 59 years old Clinical indication: Left-sided chest pain TECHNIQUE: Imaging protocol: XR of the chest Views: 2 views. COMPARISON: CR XR chest 1V portable [id number] 07/16/2019 11:37 AM FINDINGS: Lungs: Unremarkable. No consolidation. Pleural space: Unremarkable. No pleural effusion. No pneumothorax. Heart/Mediastinum: Unremarkable. No cardiomegaly. Bones/joints: No acute findings. XR/XR chest 2V* [id number] IMPRESSION: No acute findings.
[2019-07-22] MEDS: psyllium powder Pkt 1 PACKET PO (12:33)
[2019-07-22] MEDS: aspirin 81 mg Chew Tablet 324 MG PO (12:33)
--- NOTE | 2019-07-22 12:51 | ECG_ITS ---
Measurements Intervals [place] Rate: 97 P: 28 GA: 199 QRS: 93 QRSD: 111 T: 34 QT: 357 QTc: 455 SINUS RHYTHM INDETERMINATE AXIS POSSIBLE ANTERIOR MYOCARDIAL INFARCTION, OF INDETERMINATE AGE Compared to ECG 07/22/2019 10:37:02 No significant changes Electronically Signed On 07-22-2019 15:34:57 [employer] by Nicole Celaya M.D. [id number]
[2019-07-22 14:00] VITALS: BP 119/68; PULSE 96; RESP 20; TEMP 36.7; O2SAT 95
[2019-07-22 14:18] LABS: Troponin 5 2HR 26.63 ng/mL (0-15); Troponin 5 2HR Delta -2.37 ABS# (0-10)
--- NOTE | 2019-07-22 15:04 | PC.SOCIAL ---
Medicaid ride called, trip ID#[id number], should arrive between 3:30pm and 6:30pm. If for some reason the ride does not show up you may call the Where's My Ride number at
[2019-07-22 15:27] VITALS: BP 119/68; PULSE 96; RESP 20; TEMP 36.7; O2SAT 95
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
== END 2019-07-22 17:06 | disposition home or self-care (01) | DRG 885 ==
LOC: ER 20:25 → NP 20:36
PROVIDERS: Family Medicine; Admitting Provider Psychiatry & Neurology Psychiatry; Emergency Provider Family Medicine; Family Provider Family Medicine; PCP Family Medicine; Visit Provider Psychiatry & Neurology Psychiatry
DX: F30.9 Manic episode, unspecified (principal); F81.9 Developmental disorder of scholastic skills, unspecified; F03.90 Unspecified dementia, unspecified severity, without behavioral disturbance, psychotic disturbance, mood disturbance, and anxiety; F41.8 Other specified anxiety disorders; Z87.891 Personal history of nicotine dependence; Z99.3 Dependence on wheelchair; Z91.14 Patient's other noncompliance with medication regimen
CPT/HCPCS: 12345; 36415; 36416; 70450; 71045; 71046; 80053; 80306; 80307; 81003; 82962; 84439; 84443; 84481; 84484; 85025; 93005; 96372; 99282; 99284; A9270; J1630; J2060; J3486

== ENCOUNTER 2019-07-24 11:01 | Emergency (ER) | payer MEDICARE, MEDICAID, SELFPAY ==
[2019-07-24 11:03] VITALS: BP 108/79; RESP 18; BMI 45.6
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
[2019-07-24 11:09] VITALS: BP 167/95; PULSE 90; RESP 18; O2SAT 96
[2019-07-24 11:32] LABS: Add Urine Microscopic? NO
[2019-07-24 11:34] VITALS: BP 137/87; PULSE 86; RESP 16; O2SAT 94
[2019-07-24 11:35] LABS: Basophils # 0.1 10^3/uL (0.0-0.1); Eosinophils # 0.3 10^3/uL (0.0-0.8); Eosinophils % 4.9 %; Hematocrit 39.1 % (42.0-52.0); Hemoglobin 12.1 g/dL (11.7-16.6); Lymphocytes # 1.1 10^3/uL (0.8-4.8); Lymphocytes % 17.4 %; Mean Corpuscular HGB Conc 30.9 g/dL (30.0-36.0); Mean Corpuscular Hemoglobin 25.4 pg (28.0-34.0); Mean Platelet Volume 9.9 fL (7.4-10.4); Monocytes # 0.6 10^3/uL (0.2-0.9); Monocytes % 9.9 %; Neutrophils # 4.2 10^3/uL (1.8-7.7); Neutrophils % 66.6 %; Nucleated Red Blood Cells % 0 %; Platelet Count 254 10^3/cmm (130-400); Red Blood Count 4.77 10^6/uL (4.1-5.3); Red Cell Distribution Width 16.5 % (12.1-15.1); White Blood Count 6.3 10^3/uL (4.0-10.0)
[2019-07-24 11:37] LABS: Bilirubin Urine Neg (NEGATIVE); Blood Urine Neg (Negative); Glucose Urine UA Norm (Normal); Ketones Urine Negative (Negative); Leukocyte Esterase Urine Negative (Negative); Nitrate Urine Negative (Negative); Protein Urine Neg (Negative); Urine Appearance Clear (CLEAR); Urine Color Straw (Yellow); Urobilinogen Urine Norm (Negative)
[2019-07-24 11:51] LABS: Amphetamines Screen Urine Negative (Negative); Barbiturates Screen Urine Negative (Negative); Benzodiazepines Screen Urine Negative (Negative); Cocaine Screen Urine Negative (Negative); PCP Screen Urine Negative (Negative); THC Screen Urine Negative (Negative)
[2019-07-24 11:52] LABS: Alanine Aminotransferase 16 U/L (0-41); Albumin Level 4.4 g/dL (3.5-5.2); Alcohol Level 13 mg/dL (0-10); Alkaline Phosphatase 124 IU/L (40-130); Anion Gap 15.9 (5-19); Aspartate Amino Transferase 20 U/L (0-40); Blood Urea Nitrogen 26 mg/dL (6-20); Calcium 9.4 mg/dL (8.5-10.5); Carbon Dioxide 29 mmol/L (22-29); Chloride 98 mmol/L (98-107); Globulin 3.2 g/dL (1.3-4.6); Glomerular Filtration Rate 68.8 mL/min (90-130); Glucose 118 mg/dL (65-115); Potassium 3.9 mmol/L (3.5-5.1); Sodium 139 mmol/L (136-145); Total Bilirubin 0.3 mg/dL (0.15-1.2); Total Protein 7.6 g/dL (6.6-8.7)
[2019-07-24 12:00] LABS: Acetaminophen < 5.0 ug/mL (10-30); Salicylate < 0.3 mg/dL (3-10)
[2019-07-24] MEDS: LORazepam 1 mg Tablet PO ×2 (12:33→21:34)
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
[2019-07-24 15:15] LABS: Influenza A by IFA Negative (Negative); Influenza B by IFA Negative (Negative)
[2019-07-24] MEDS: diphenhydrAMINE 25 mg Capsule PO (15:29)
--- NOTE | 2019-07-24 17:12 | XRR_ITS ---
PROCEDURE INFORMATION: Exam: XR Chest, 1 View Exam date and time: 07/24/2019 5:26 PM Age: 59 years old Clinical indication: Patient HX: Cough, PT denies smoking HX; Additional info: Need for triage TECHNIQUE: Imaging protocol: XR of the chest Views: 1 view. COMPARISON: CR XR chest 2V* [id number] 07/22/2019 11:59 AM FINDINGS: Lungs: Unremarkable. No consolidation. There is better depth of inspiration. Mild ground-glass opacity or volume loss in the lower lobes has resolved. Pleural space: Unremarkable. No pleural effusion. No pneumothorax. Heart/Mediastinum: There is cardiomegaly. Bones/joints: No acute abnormality. XR/XR chest 1V portable [id number] IMPRESSION: No acute findings.
--- NOTE | 2019-07-24 17:13 | ECG_ITS ---
Measurements Intervals [place] Rate: 83 P: 41 VT: 197 QRS: 96 QRSD: 117 T: 48 QT: 397 QTc: 469 SINUS RHYTHM POSSIBLE LEFT ATRIAL ENLARGEMENT [-0.1mV P WAVE IN V1/V2] BORDERLINE RIGHT AXIS DEVIATION [QRS AXIS > 90] MODERATE INTRAVENTRICULAR CONDUCTION DELAY [110+ ms QRS DURATION] Compared to ECG 07/22/2019 13:52:56 Intraventricular conduction delay now present Indeterminate axis no longer present Myocardial infarct finding no longer present Electronically Signed On 07-25-2019 6:28:12 [employer] SUPERVISOR by Nicole Celaya M.D. [email or web address]
[2019-07-24] MEDS: LORazepam 2 mg Tablet PO (17:49)
[2019-07-24 18:23] LABS: Thyroid Stimulating Hormone 2.18 uIU/mL (0.27-4.20)
[2019-07-24] MEDS: ibuprofen 600 mg Tablet PO (21:34)
[2019-07-25] MEDS: LORazepam 2 mg/mL INJ 1 mL IM (07:28)
[2019-07-25] MEDS: ziprasidone 20 mg/mL SDV 10 MG IM (07:28)
--- NOTE | 2019-07-25 09:29 | ED_ITS ---
HPI - Psych General: Chief Complaint: Psychiatric Symptoms Stated Complaint: PSYCH EVAL Time Seen by Provider: 07/24/19 11:03 Source: patient, EMS and RN notes reviewed History of Present Illness: HPI Narrative: Patient care assumed from Dr. Monique at change of shift patient had previously seen Dr. Portillo had consultation by Dr. Stephens so far we have not been able to place him at any facility in the formerly [facility]. Review of Systems Const: Denies: fever, chills, body aches, change in appetite, fatigue or malaise ENMT: Denies: throat pain, ear pain, nasal discharge or nasal congestion Card: Denies: chest pain, edema, shortness of breath on exertion or shortness of breath when lying down Resp: Denies: shortness of breath, productive cough or non-productive cough GI: Denies: abdominal pain, nausea, vomiting, vomiting blood, coffee grounds in vomit, diarrhea, constipation, bloating, blood in stool or black tarry stool : Denies: flank pain, painful urination, urinary frequency or urinary urgency Musc: Reports: back pain (Chronic) and joint stiffness (Chronic) PFSH ED PFSH: Medical History Anxiety and depression CHF (congestive heart failure) Diabetes Generalized anxiety disorder GERD (gastroesophageal reflux disease) Hemorrhoids Hip arthritis Impaired mobility and activities of daily living Leg ulcer Major depressive disorder, recurrent severe without psychotic features Overflow incontinence of urine Urinary retention Surgical History H/O circumcision H/O elbow surgery H/O hernia repair History of colonoscopy Family History Brother Heart disease Mother Cancer stomach Father Cancer colon cancer CAD (coronary artery disease) Denies family history of Anesthesia complication Bleeding disorder Social History Smoking and tobacco status: never smoked Alcohol intake: never Household members: significant other Marital status: Single Current occupational status: disabled Physical Exam Const: COMMON NORMALS: no apparent distress GENERAL APPEARANCE: comfortable ORIENTATION/CONSCIOUSNESS: Yes awake, Yes oriented to person, Yes oriented to place and Yes oriented to time HENMT: COMMON NORMALS: normocephalic, head/scalp atraumatic, hearing grossly normal bilaterally, external ears normal, nasal mucous membranes and turbinates normal, moist oral mucous membranes and oropharynx normal HEAD & SCALP: normocephalic and atraumatic NOSE: nasal mucous membranes and turbinates normal EXTERNAL EAR: Yes external ears normal Eye: COMMON NORMALS: PERRL, EOMs intact bilaterally, conjunctivae normal and no scleral icterus CONJUNCTIVA: Yes conjunctivae normal PUPIL: Yes PERRL Neck/C-Spine: COMMON NORMALS: no JVD Resp: COMMON NORMALS: normal respiratory effort, no retractions, no use of accessory muscles and clear to auscultation bilaterally AUSCULTATION: clear to auscultation bilaterally Cardio: COMMON NORMALS: no JVD, regular rate, regular rhythm and no murmurs RATE: regular rate RHYTHM: regular rhythm GI: COMMON NORMALS: soft to palpation and no hepatosplenomegaly AUSCULTATION: Yes normoactive bowel sounds PALPATION: Yes soft, No tender, No guarding and Yes no hepatosplenomegaly Extremity: COMMON NORMALS: normal to inspection, normal capillary refill and no calf tenderness OTHER: Bilateral lower extremity edema 2+ Neuro: SENSORIUM/ORIENTATION: Yes oriented to person, Yes oriented to place and Yes oriented to time MDM - Psych Lab Data: Labs: Lab Results 07/24/19 07/24/19 07/24/19 Range/Units 11:15 11:15 11:28 WBC 6.3 (4.0-10.0) 10^3/ uL RBC 4.77 (4.1-5.3) 10^6/u L Hgb 12.1 (11.7-16.6) g/dL Hct 39.1 L (42.0-52.0) % MCV 82.0 (80-94) fL MCH 25.4 L (28.0-34.0) pg MCHC 30.9 (30.0-36.0) g/dL RDW 16.5 H (12.1-15.1) % Plt Count 254 (130-400) 10^3/c mm MPV 9.9 (7.4-10.4) fL Neut % (Auto) 66.6 % Lymph % (Auto) 17.4 % Lawrence % (Auto) 9.9 % Eos % (Auto) 4.9 % Baso % (Auto) 1.0 % Neut # (Auto) 4.2 (1.8-7.7) 10^3/u L Lymph # (Auto) 1.1 (0.8-4.8) 10^3/u L Lawrence # (Auto) 0.6 (0.2-0.9) 10^3/u L Eos # (Auto) 0.3 (0.0-0.8) 10^3/u L Baso # (Auto) 0.1 (0.0-0.1) 10^3/u L Nucleated RBC % (a uto) 0 % Nucleated RBCs # 0.0 /100WBC Sodium (136-145) mmol/L Potassium (3.5-5.1) mmol/L Chloride (98-107) mmol/L Carbon Dioxide (22-29) mmol/L Anion Gap (5-19) BUN (6-20) mg/dL Creatinine (0.7-1.2) mg/dL GFR Calculation (90-130) mL/min Glucose (65-115) mg/dL Calcium (8.5-10.5) mg/dL Total Bilirubin (0.15-1.2) mg/dL AST (0-40) U/L ALT (0-41) U/L Alkaline Phosphata se (40-130) IU/L Total Protein (6.6-8.7) g/dL Albumin (3.5-5.2) g/dL Globulin (1.3-4.6) g/dL TSH (0.27-4.20) uIU/ mL Urine Color Straw (Yellow) Urine Appearance Clear (CLEAR) Urine pH 7.0 (5-7) Ur Specific Gravit y 1.010 (1.005-1.030) Urine Protein Neg (Negative) Urine Glucose (UA) Norm (Normal) Urine Ketones Negative (Negative) Urine Blood Neg (Negative) Urine Nitrate Negative (Negative) Urine Bilirubin Neg (NEGATIVE) Urine Urobilinogen Norm (Negative) mg/dL Ur Leukocyte Alie ase Negative (Negative) Salicylates (3-10) mg/dL Urine Opiates Scre en Positve (Negative) ng/mL Acetaminophen (10-30) ug/mL Ur Barbiturates Sc reen Negative (Negative) ng/mL Ur Phencyclidine S crn Negative (Negative) ng/mL Ur Amphetamines Sc reen Negative (Negative) ng/mL U Benzodiazepines Scrn Negative (Negative) ng/mL Urine Cocaine Scre en Negative (Negative) ng/mL U Marijuana (THC) Screen Negative (Negative) ng/mL Ethyl Alcohol (0-10) mg/dL Influenza Type A A g (Negative) POC Influenza B Ag (Negative) 07/24/19 07/24/19 07/24/19 Range/Units 11:28 11:28 14:40 WBC (4.0-10.0) 10^3/ uL RBC (4.1-5.3) 10^6/u L Hgb (11.7-16.6) g/dL Hct (42.0-52.0) % MCV (80-94) fL MCH (28.0-34.0) pg MCHC (30.0-36.0) g/dL RDW (12.1-15.1) % Plt Count (130-400) 10^3/c mm MPV (7.4-10.4) fL Neut % (Auto) % Lymph % (Auto) % Lawrence % (Auto) % Eos % (Auto) % Baso % (Auto) % Neut # (Auto) (1.8-7.7) 10^3/u L Lymph # (Auto) (0.8-4.8) 10^3/u L Lawrence # (Auto) (0.2-0.9) 10^3/u L Eos # (Auto) (0.0-0.8) 10^3/u L Baso # (Auto) (0.0-0.1) 10^3/u L Nucleated RBC % (a uto) % Nucleated RBCs # /100WBC Sodium 139 (136-145) mmol/L Potassium 3.9 (3.5-5.1) mmol/L Chloride 98 (98-107) mmol/L Carbon Dioxide 29 (22-29) mmol/L Anion Gap 15.9 (5-19) BUN 26 H (6-20) mg/dL Creatinine 1.1 (0.7-1.2) mg/dL GFR Calculation 68.8 L (90-130) mL/min Glucose 118 H (65-115) mg/dL Calcium 9.4 (8.5-10.5) mg/dL Total Bilirubin 0.3 (0.15-1.2) mg/dL AST 20 (0-40) U/L ALT 16 (0-41) U/L Alkaline Phosphata se 124 (40-130) IU/L Total Protein 7.6 (6.6-8.7) g/dL Albumin 4.4 (3.5-5.2) g/dL Globulin 3.2 (1.3-4.6) g/dL TSH 2.18 (0.27-4.20) uIU/ mL Urine Color (Yellow) Urine Appearance (CLEAR) Urine pH (5-7) Ur Specific Gravit y (1.005-1.030) Urine Protein (Negative) Urine Glucose (UA) (Normal) Urine Ketones (Negative) Urine Blood (Negative) Urine Nitrate (Negative) Urine Bilirubin (NEGATIVE) Urine Urobilinogen (Negative) mg/dL Ur Leukocyte Alie ase (Negative) Salicylates < 0.3 L (3-10) mg/dL Urine Opiates Scre en (Negative) ng/mL Acetaminophen < 5.0 L (10-30) ug/mL Ur Barbiturates Sc reen (Negative) ng/mL Ur Phencyclidine S crn (Negative) ng/mL Ur Amphetamines Sc reen (Negative) ng/mL U Benzodiazepines Scrn (Negative) ng/mL Urine Cocaine Scre en (Negative) ng/mL U Marijuana (THC) Screen (Negative) ng/mL Ethyl Alcohol 13 H (0-10) mg/dL Influenza Type A A g Negative (Negative) POC Influenza B Ag Negative (Negative) Discharge Plan Discharge Patient Disposition: Home, Self-Care Clinical Impression: Hypersexuality, Homicidal ideation, Bipolar 1 disorder, mixed Condition: Stable Prescriptions: No Action (DME) DME: [facility] See Rx Instructions .ROUTE .MEDSUPPLY Qty: 1 RF: 0 atorvastatin 80 mg Tablet 80 mg PO DAILY RF: 0 bumetanide 2 mg Tablet 4 mg PO BID RF: 0 spironolactone 25 mg Tablet 25 mg PO DAILY RF: 0 potassium chloride 20 mEq Tablet Extended Release 20 meq PO TID RF: 0 doxepin 50 mg Capsule 100 mg PO BEDTIME Qty: 60 RF: 4 memantine 5 mg Tablet 10 mg PO BID Qty: 60 RF: 4 duloxetine 20 mg Capsule,Delayed Release(Dr/Ec) 20 mg PO DAILY Qty: 30 RF: 4 trazodone 50 mg Tablet 50 mg PO BEDTIME PRN (Reason: Sleep) Qty: 30 RF: 4 topiramate 25 mg Tablet 50 mg PO BID Qty: 60 RF: 4 metformin [Glucophage] 500 mg tablet 500 mg PO BID Qty: 60 RF: 4 oxybutynin chloride 5 mg Tablet 10 mg PO BID Qty: 120 RF: 4 multivitamin [Multiple Vitamins] Tablet 1 tab PO DAILY RF: 0 aspirin 81 mg Tablet,Delayed Release (Dr/Ec) 81 mg PO DAILY RF: 0 ibuprofen 200 mg Tablet 200 mg PO Q6H PRN (Reason: Pain) RF: 0 docusate sodium [Colace] 100 mg Capsule 100 mg PO DAILY RF: 0 cholecalciferol (vitamin D3) [Vitamin D3] 10 mcg (400 unit) Tablet 10 mcg PO DAILY RF: 0 tamsulosin 0.4 mg Capsule 0.4 mg PO DAILY RF: 0 Discharge Orders: Discharge Order (Routine); Ordered 07/25/19 Ordered By: Domingo Sanchez Referrals: Jenn Mcgowan MD [Primary Care Provider] - Discharge Diet: Usual diet Discharge Activity: Resume usual activity Activity Restrictions/Additional Instructions: Continue medications as previously prescribed follow-up with your primary care physician as previously scheduled. Follow-up with behavioral health next week. Discharge Date/Time: 07/25/19 18:05 Sign Out Sign Out Data: Patient Sign Out occurred on 07/24/19 at 23:37. Patient's care was discussed, and care was transferred from Klaudia Portillo MD to Anita Johnson. Sign Out Comment: SI patient that was seen by Dr. Stephens earlier today, waiting for 3 more facilities to decide on acceptance of this patient. If the last 3 facilities declined this patient Dr. Monique will call Dr. Mcgowan to come up with disposition plan Last updated by Klaudia Portillo MD at 07/24/19 23:18 Patient Sign Out occurred on 07/25/19 at 06:56. Patient's care was discussed, and care was transferred from Anita Johnson to Domingo Sanchez DO. Sign Out Comment: Case turned over to Dr. Patel at change of shift. Last updated by Anita Johnson at 07/25/19 05:15 Coding Level of Care Code ED Technical Applications Specialist for Chg Fwd
--- NOTE | 2019-07-25 09:48 | PC.NURSE ---
[facility] called back, declined patient due to acuity in their facility already.
[2019-07-25 11:50] VITALS: BP 137/87; PULSE 86; RESP 16; O2SAT 94
--- NOTE | 2019-07-25 12:29 | PC.NURSE ---
Dr. Mcgowan at bedside speaking with patient.
--- NOTE | 2019-07-25 13:38 | P.CONIM_ITS ---
Providers/Reason for Consult Consulting Physican/Specialty*: Manuelito Mcgowan M.D., psychiatry. Reason for Consult*: Evaluation for safety and need for admission. Requesting Physcian: Domingo Sanchez Attending Physician: Domingo Sanchez Primary Care Provider: Jenn Mcgowan MD Psych Consult HPI History of Present Illness David Sánchez is a 59 year old male who is known through couple hospitalizations in the last few weeks as well an evaluation/consult yesterday by Dr. Stephens. Dr. Stephens evaluated David been deemed admission to [facility] inappropriate given his last 2 hospitalizations in what appears to be driving his desire for admission. Specifically he is very sexually preoccupied and has intellectual disability and is in need us specific behavioral interventions versus inpatient hospitalization. When I met with David he was not interested in hospitalization. He reportedly had a second fight with his girlfriend and so was very angry and that lidocaine to the emergency room again. He reports however now he has calm down, is not matted her, and is desirous to go home. He does say that the relationship is quite strained and is not sure how to work out but at this point he just wants to go home. He denied any desire to do her, himself or anyone else harm. He reports that they have been together for many years. He denied depression, anxiety, obsessions, compulsions, active addictions, recent concussion, or current active medical conditions to his knowledge. He denied knowledge of any active legal issues even after being asked about PFAs. He reports that he is sleeping well. He denies suicide attempts or completions. He did throughout the interview made comments about wanting to have to girlfriends instead of 1, being attracted or interested in being boyfriend of the sitter and did bring up sex on a couple of occasions but he did not rise to the level that was reported during his inpatient stay and he was otherwise appropriate. Psychiatric history: He reports he has had more hospitalizations that he can count. He reports he's been on multiple different medications. Substance abuse history: Endorses chewing and other exposure to tobacco, he denies significant alcohol intake, he reports he does smoke marijuana but not very often due to finances. He denies any other illicit drug use. Family history: Endorses having some family history of mental health issues. He denies significant addiction history or history of family members with suicide attempts or completions. Developmental history: He denies any issues during his mom's or delivery. He denies known developmental delay. He does report once he went to school he did need speech therapy, learning support, emotional support in special education classes. Psychosocial history: He reports being the product of his mother about the relationship. He does endorse having siblings. He reports his mom when he was 4 and his father when he was 9. He endorses he and his 3 or 4 siblings were split up and raised in residential settings. Endorses childhood was not blindly did not elaborate. Endorses graduating from high school. Denies ever officially being . He never had children, never been in he does report having some belief in God and Dionicio Efraín. He reports he has been employed once as long as 14 years. He reports he lives with his girlfriend for some time. Legal history: Reports significant gel couple of times but never more than a few hours. PFSH NPU PFSH: Family History (Updated 07/22/19 @ 11:15 by Hanna Montilla DO) Brother Heart disease Mother Cancer stomach Father Cancer colon cancer CAD (coronary artery disease) Denies family history of Anesthesia complication Bleeding disorder Social History Smoking and tobacco status: never smoked Alcohol intake: never Household members: significant other Marital status: Single Current occupational status: disabled Mental Status Exam MSE Comments: This is an obese versus morbidly obese white male with a hospital gown on, with limited grooming adequate eye contact. No abnormal movements except for mild psychomotor retardation. Cooperative with exam in no acute distress. Speech was decreased rate and volume with significant dysarthria. Mood described as good affect euthymic. Thought process organized. Thought content: Patient denied any suicidal or homicidal ideation, there were no delusions reported noted, he denied any auditory or visual hallucinations. Attention and concentration were intact and memory appeared reliable but now more formally tested. He is alert and oriented ?3. He seems to have clear cognitive limitations. Insight and judgment are limited. Vitals/I&O/Wt Last Vital Signs Pulse 86 07/25/19 11:50 Resp 16 07/25/19 11:50 BP 137/87 07/25/19 11:50 Pulse Ox 94 07/25/19 11:50 Weight last 48 hrs Weight 136.078 kg A&P Assessment and plan (1) Intellectual disability: This is a 59-year-old white male with a recent history of multiple hospitalizations in visits to the emergency room with significant hypersexuality presenting initially with reports of desire to be admitted and endorsing lethality who ultimately denied any lethality to this insurance underwriter but he was hypersexual. 1. Continue current medication. 2. Recommend outpatient mental health services. 3. No active lethality or credible lethality noted 4. Would advise clear understanding of the circumstances in his residence prior to discharge to his residence. Status: Acute Code(s): F79 - Unspecified intellectual disabilities Involuntary Hold Information 96 Hour Hold: 96 Hour Involuntary Admission: No Attestations NPU Medical Necessity Statement*: Inpatient psychiatric services are not medically necessary. Patient appears to have intellectual disability and significant focus on having a girlfriend and being intermittent. Otherwise no aggressive or dangerous ideations noted. Coding Level of Care Code Acute Plush Weaver for Vidya Hoover Diagnoses Intellectual disability F79
[2019-07-25 14:05] VITALS: BP 141/88; PULSE 87; RESP 17; O2SAT 95
--- NOTE | 2019-07-26 10:17 | PM.PSYCN ---
Providers/Reason for Consult Consulting Physican/Specialty*: Manuelito Mcgowan M.D. Psychiatry. Reason for Consult*: Evaluation for need for admission versus discharge and safety. Requesting Physcian: Dr. Johnson. Primary Care Provider: Jenn Mcgowan MD Psych Consult HPI History of Present Illness David Sánchez is a 59 year old male who presents to the ER again reportedly desirous of inpatient hospitalization when he got here however upon my evaluation he reported a desire to go home and denied any lethality. Currently they are great concerns about him coming here so that he can interact with different female providers. He continues to be quite sexually driven and asking to be able to date the different centers and things of that nature. There is no new information in talking to him. He is a poor historian but essentially is functioning at a clearly intellectually disabled level such that it appears that he has a thought and then follow through on that. This high impulsivity will likely lead to continued visits to the emergency department unless we address this. My understanding is that there are charges against him because of his inappropriate sexual behavior. He had a recent admission [place] [facility] which was fairly traumatic for the staff. There are no changes from his previous history and psychosocial background please see previous notes for further information but is noncontributory to this consult. Per last consult evaluation: Psych Consult HPI History of Present Illness David Sánchez is a 59 year old male who is known through couple hospitalizations in the last few weeks as well an evaluation/consult yesterday by Dr. Stephens. Dr. Stephens evaluated David been deemed admission to [facility] inappropriate given his last 2 hospitalizations in what appears to be driving his desire for admission. Specifically he is very sexually preoccupied and has intellectual disability and is in need us specific behavioral interventions versus inpatient hospitalization. When I met with David he was not interested in hospitalization. He reportedly had a second fight with his girlfriend and so was very angry and that lidocaine to the emergency room again. He reports however now he has calm down, is not matted her, and is desirous to go home. He does say that the relationship is quite strained and is not sure how to work out but at this point he just wants to go home. He denied any desire to do her, himself or anyone else harm. He reports that they have been together for many years. He denied depression, anxiety, obsessions, compulsions, active addictions, recent concussion, or current active medical conditions to his knowledge. He denied knowledge of any active legal issues even after being asked about PFAs. He reports that he is sleeping well. He denies suicide attempts or completions. He did throughout the interview made comments about wanting to have to girlfriends instead of 1, being attracted or interested in being boyfriend of the sitter and did bring up sex on a couple of occasions but he did not rise to the level that was reported during his inpatient stay and he was otherwise appropriate. Psychiatric history: He reports he has had more hospitalizations that he can count. He reports he's been on multiple different medications. Substance abuse history: Endorses chewing and other exposure to tobacco, he denies significant alcohol intake, he reports he does smoke marijuana but not very often due to finances. He denies any other illicit drug use. Family history: Endorses having some family history of mental health issues. He denies significant addiction history or history of family members with suicide attempts or completions. Developmental history: He denies any issues during his mom's or delivery. He denies known developmental delay. He does report once he went to school he did need speech therapy, learning support, emotional support in special education classes. Psychosocial history: He reports being the product of his mother about the relationship. He does endorse having siblings. He reports his mom when he was 4 and his father when he was 9. He endorses he and his 3 or 4 siblings were split up and raised in residential settings. Endorses childhood was not blindly did not elaborate. Endorses graduating from high school. Denies ever officially being . He never had children, never been in he does report having some belief in God and Dionic[employer] Efraín. He reports he has been employed once as long as 14 years. He reports he lives with his girlfriend for some time. Legal history: Reports significant gel couple of times but never more than a few hours. PFSH NPU PFSH: Medical History Anxiety and depression CHF (congestive heart failure) Diabetes Generalized anxiety disorder GERD (gastroesophageal reflux disease) Hemorrhoids Hip arthritis Impaired mobility and activities of daily living Leg ulcer Major depressive disorder, recurrent severe without psychotic features Overflow incontinence of urine Urinary retention Surgical History H/O circumcision H/O elbow surgery H/O hernia repair History of colonoscopy Family History Brother Heart disease Mother Cancer stomach Father Cancer colon cancer CAD (coronary artery disease) Denies family history of Anesthesia complication Bleeding disorder Social History Smoking and tobacco status: never smoked Alcohol intake: never Household members: significant other Marital status: Single Current occupational status: disabled Mental Status Exam MSE Comments: This is an obese versus morbidly obese white male with a hospital gown on, with limited grooming adequate eye contact. No abnormal movements except for mild psychomotor retardation. Cooperative with exam in no acute distress. Speech was decreased rate and volume with significant dysarthria. Mood described as fine affect euthymic. Thought process organized. Thought content: Patient denied any suicidal or homicidal ideation, there were no delusions reported noted, he denied any auditory or visual hallucinations. Attention and concentration were intact and memory appeared reliable but now more formally tested. He is alert and oriented ?3. He seems to have clear cognitive limitations. Insight and judgment are limited. Impulse control is limited. Vitals/I&O/Wt Last Vital Signs Pulse 87 07/25/19 14:05 Resp 17 07/25/19 14:05 BP 141/88 07/25/19 14:05 Pulse Ox 95 07/25/19 14:05 A&P Additional A&P Information This is a 59-year-old white male with a recent history of multiple hospitalizations in visits to the emergency room with significant hypersexuality presenting initially with reports of desire to be admitted and endorsing lethality who ultimately denied any lethality to this health technical writer but he was hypersexual. 1. Continue current medication. 2. Recommend outpatient mental health services. 3. No active lethality or credible lethality noted 4. Would advise clear understanding of the circumstances in his residence prior to discharge to his residence. Involuntary Hold Information 96 Hour Hold: 96 Hour Involuntary Admission: No Attestations NPU Medical Necessity Statement*: Inpatient psychiatric services are not medically necessary. Patient appears to have intellectual disability and significant focus on having a girlfriend and being intimate. Otherwise no aggressive or dangerous ideations noted. Coding Level of Care Code Acute Edging Machine Operator for Chg Fwd
== END 2019-07-25 18:05 | disposition home or self-care (01) ==
PROVIDERS: Emergency Medicine; Emergency Provider Family Medicine; Family Provider Family Medicine; PCP Family Medicine
DX: F31.60 Bipolar disorder, current episode mixed, unspecified (principal); R45.850 Homicidal ideations; F52.8 Other sexual dysfunction not due to a substance or known physiological condition; F79 Unspecified intellectual disabilities; F03.90 Unspecified dementia, unspecified severity, without behavioral disturbance, psychotic disturbance, mood disturbance, and anxiety; I50.9 Heart failure, unspecified; E11.9 Type 2 diabetes mellitus without complications; F17.220 Nicotine dependence, chewing tobacco, uncomplicated; Z79.84 Long term (current) use of oral hypoglycemic drugs
CPT/HCPCS: 12345; 36415; 71045; 80053; 80307; 81003; 84443; 85025; 87804; 93005; 96372; 99284; A9270; J2060; J3486

== ENCOUNTER 2019-07-26 00:50 | Emergency (ER) | payer MEDICARE, MEDICAID, SELFPAY ==
[2019-07-26 00:54] VITALS: BP 112/64; PULSE 97; RESP 16; TEMP 37.1; O2SAT 97; BMI 45.6
--- NOTE | 2019-07-26 01:13 | ED_ITS ---
Entered by Mariah Stephenson, acting as scribe for Anita Johnson HPI - Psych General: Chief Complaint: Psychiatric Symptoms Stated Complaint: STRESS Time Seen by Provider: 07/26/19 00:51 Source: patient and EMS Mode of arrival: EMS History of Present Illness: HPI Narrative: 59 y/o male presents to the ED with complaint of stress. Pt was seen here yesterday, and was discharged 6-7 hours ago. Pt states his girl friend was not home when he got there and it stressed him out. Pt states he wants to wring her neck . Pt denies SI at this time but is HI ( wants to kill his girl friend). complaint: other (stress, HI) Onset (ago): hour(s) Duration: getting worse Relieving factors: none Exacerbating factors: other (family) Context: significant life stressor Associated psychiatric symptoms: homicidal ideation Review of Systems General: Reports: other (negative unless marked) Const: Denies: fever, chills, body aches, fatigue, malaise or diaphoresis Eyes: Denies: change in vision or blurry vision ENMT: Denies: throat pain, painful swallowing, hoarseness, ear pain, ear discharge, Change in hearing or nasal discharge Card: Denies: chest pain, palpitations, irregular heart rhythm, syncope, pre- syncope, shortness of breath on exertion or shortness of breath when lying down Resp: Denies: shortness of breath, productive cough, non-productive cough, wheezing, coughing up blood or chest congestion GI: Denies: abdominal pain, nausea, vomiting, vomiting blood, coffee grounds in vomit, diarrhea, constipation, cramping, blood in stool or black tarry stool : Denies: flank pain, difficulty urinating, painful urination, urinary frequency, urinary urgency, decreased urine ouput, urinary incontinence or blood in urine Musc: Denies: neck pain, back pain, extremity pain, extremity swelling, joint pain, joint swelling, joint warmth or joint stiffness Skin/Breast: Denies: rash, skin tenderness or yellow skin Neuro: Denies: headache, numbness in extremities, weakness in extremities, changes in sensation, lack of coordination, difficulty walking, dizziness, vertigo or confusion Endo: Denies: excessive thirst, tired all the time, cold intolerance, excessive sweating, flushing or hot flashes Deon/Lymph: Denies: easy bruising, easy bleeding, petechiae or enlarged lymph nodes All/Imm: Denies: hives, throat swelling, tongue swelling, facial swelling or acute wheezing PFSH ED PFSH: Family History (Updated 07/22/19 @ 11:15 by Hanna Montilla DO) Brother Heart disease Mother Cancer stomach Father Cancer colon cancer CAD (coronary artery disease) Denies family history of Anesthesia complication Bleeding disorder Social History Smoking and tobacco status: never smoked Alcohol intake: never Household members: significant other Marital status: Single Current occupational status: disabled Physical Exam Const: COMMON NORMALS: oriented x3 EXAM LIMITATIONS: no altered mental status GENERAL APPEARANCE: well developed ORIENTATION/CONSCIOUSNESS: Yes awake HENMT: COMMON NORMALS: normocephalic, head/scalp atraumatic, hearing grossly normal bilaterally, external ears normal, EAC's normal, external nose normal and moist oral mucous membranes HEAD & SCALP: normal to inspection, normocephalic and atraumatic FACE & SINUS: normal facial exam and face symmetric NOSE: external nose normal and nares normal EXTERNAL EAR: Yes external ears normal EXTERNAL AUDITORY CANAL: EAC's normal MOUTH: oral and palatal mucosa normal and tongue normal Eye: COMMON NORMALS: PERRL, EOMs intact bilaterally, conjunctivae normal and no scleral icterus GENERAL EYE: normal appearance of both eyes and normal light reflex CONJUNCTIVA: Yes conjunctivae normal SCLERA: sclerae normal CORNEA: Yes corneas normal PUPIL: Yes PERRL DIRECT OPHTHALMOSCOPY: Yes normal light reflex Neck/C-Spine: COMMON NORMALS: full ROM, no lymphadenopathy, supple, no meningeal signs and no JVD GENERAL: Yes normal visual inspection and Yes trachea midline CERVICAL SPINE: Yes cervical ROM normal Chest: COMMONS NORMALS: inspection of chest normal and palpation of chest normal Resp: COMMON NORMALS: normal respiratory effort, no retractions, no use of accessory muscles and clear to auscultation bilaterally EFFORT & INSPECTION: Yes able to speak in complete sentences AUSCULTATION: clear to auscultation bilaterally Cardio: COMMON NORMALS: no JVD, regular rate, regular rhythm, S1 normal heart sound, S2 normal heart sound, no gallops, no clicks, no murmurs and no rub JUGULAR VENOUS DISTENTION: no JVD RATE: regular rate RHYTHM: regular rhythm HEART SOUNDS: S1 normal and S2 normal GI: COMMON NORMALS: soft to palpation, non-tender, no hepatosplenomegaly and no masses INSPECTION: Yes normal to inspection PALPATION: Yes soft and Yes no hepatosplenomegaly : COMMON NORMALS: Yes no CVA tenderness BLADDER/KIDNEY EXAM: Yes no CVA tenderness Back/Pelvis: COMMON NORMALS: no CVA tenderness, thoracic and lumbar spine normal to inspection, no thoracic nor lumbar tenderness and thoraco-lumbar ROM normal Extremity: COMMON NORMALS: normal to inspection, full ROM, normal capillary refill, no joint enlargement, no clubbing, cyanosis or edema and no calf tenderness Neuro: COMMON NORMALS: oriented x3, CN's II-XII intact bilaterally, moves all extremities, no focal motor deficits and no sensory deficits noted MENINGEAL SIGNS: Yes no meningeal signs Skin: COMMON NORMALS: no rashes or lesions noted, skin turgor normal, no jaundice, no petechiae and no mottling GENERAL SKIN EXAM: no rashes or lesions noted and turgor normal MDM - Psych Lab Data: Labs: Lab Results 07/26/19 07/26/19 07/26/19 Range/Units 01:12 01:12 01:12 WBC 8.6 (4.0-10.0) 10^3/ uL RBC 4.32 (4.1-5.3) 10^6/u L Hgb 11.1 L (11.7-16.6) g/dL Hct 35.7 L (42.0-52.0) % MCV 82.6 (80-94) fL MCH 25.7 L (28.0-34.0) pg MCHC 31.1 (30.0-36.0) g/dL RDW 16.5 H (12.1-15.1) % Plt Count 252 (130-400) 10^3/c mm MPV 10.4 (7.4-10.4) fL Neut % (Auto) 73.5 % Lymph % (Auto) 14.5 % Sampson % (Auto) 8.4 % Eos % (Auto) 2.7 % Baso % (Auto) 0.6 % Neut # (Auto) 6.3 (1.8-7.7) 10^3/u L Lymph # (Auto) 1.3 (0.8-4.8) 10^3/u L Sampson # (Auto) 0.7 (0.2-0.9) 10^3/u L Eos # (Auto) 0.2 (0.0-0.8) 10^3/u L Baso # (Auto) 0.1 (0.0-0.1) 10^3/u L Nucleated RBC % (a uto) 0 % Nucleated RBCs # 0.0 /100WBC PT 13.90 H (10.5-13.3) SECO NDS INR 1.04 (0.8-1.2) Sodium 141 (136-145) mmol/L Potassium 4.0 (3.5-5.1) mmol/L Chloride 102 (98-107) mmol/L Carbon Dioxide 29 (22-29) mmol/L Anion Gap 14.0 (5-19) BUN 25 H (6-20) mg/dL Creatinine 1.0 (0.7-1.2) mg/dL GFR Calculation 76.7 L (90-130) mL/min Glucose 129 H (65-115) mg/dL Calcium 9.7 (8.5-10.5) mg/dL Total Bilirubin 0.3 (0.15-1.2) mg/dL AST 17 (0-40) U/L ALT 16 (0-41) U/L Alkaline Phosphata se 111 (40-130) IU/L Total Protein 7.0 (6.6-8.7) g/dL Albumin 3.5 (3.5-5.2) g/dL Globulin 3.5 (1.3-4.6) g/dL TSH 3.00 (0.27-4.20) uIU/ mL Salicylates < 0.3 L (3-10) mg/dL Urine Opiates Scre en (Negative) ng/mL Acetaminophen < 5.0 L (10-30) ug/mL Ur Barbiturates Sc reen (Negative) ng/mL Phenytoin 0.8 L (10-20) ug/mL Valproic Acid 2.8 L (50-100) mcg/mL Carbamazepine 2.0 L (4.0-12.0) ug/mL Ur Phencyclidine S crn (Negative) ng/mL Ur Amphetamines Sc reen (Negative) ng/mL U Benzodiazepines Scrn (Negative) ng/mL Marana (0.6-1.2) mmol/L Urine Cocaine Scre en (Negative) ng/mL U Marijuana (THC) Screen (Negative) ng/mL Ethyl Alcohol < 10 (0-10) mg/dL 07/26/19 07/26/19 Range/Units 01:12 01:41 WBC (4.0-10.0) 10^3/ uL RBC (4.1-5.3) 10^6/u L Hgb (11.7-16.6) g/dL Hct (42.0-52.0) % MCV (80-94) fL MCH (28.0-34.0) pg MCHC (30.0-36.0) g/dL RDW (12.1-15.1) % Plt Count (130-400) 10^3/c mm MPV (7.4-10.4) fL Neut % (Auto) % Lymph % (Auto) % Sampson % (Auto) % Eos % (Auto) % Baso % (Auto) % Neut # (Auto) (1.8-7.7) 10^3/u L Lymph # (Auto) (0.8-4.8) 10^3/u L Sampson # (Auto) (0.2-0.9) 10^3/u L Eos # (Auto) (0.0-0.8) 10^3/u L Baso # (Auto) (0.0-0.1) 10^3/u L Nucleated RBC % (a uto) % Nucleated RBCs # /100WBC PT (10.5-13.3) SECO NDS INR (0.8-1.2) Sodium (136-145) mmol/L Potassium (3.5-5.1) mmol/L Chloride (98-107) mmol/L Carbon Dioxide (22-29) mmol/L Anion Gap (5-19) BUN (6-20) mg/dL Creatinine (0.7-1.2) mg/dL GFR Calculation (90-130) mL/min Glucose (65-115) mg/dL Calcium (8.5-10.5) mg/dL Total Bilirubin (0.15-1.2) mg/dL AST (0-40) U/L ALT (0-41) U/L Alkaline Phosphata se (40-130) IU/L Total Protein (6.6-8.7) g/dL Albumin (3.5-5.2) g/dL Globulin (1.3-4.6) g/dL TSH (0.27-4.20) uIU/ mL Salicylates (3-10) mg/dL Urine Opiates Scre en Positve (Negative) ng/mL Acetaminophen (10-30) ug/mL Ur Barbiturates Sc reen Negative (Negative) ng/mL Phenytoin (10-20) ug/mL Valproic Acid (50-100) mcg/mL Carbamazepine (4.0-12.0) ug/mL Ur Phencyclidine S crn Negative (Negative) ng/mL Ur Amphetamines Sc reen Negative (Negative) ng/mL U Benzodiazepines Scrn Negative (Negative) ng/mL Marana 0.1 L (0.6-1.2) mmol/L Urine Cocaine Scre en Negative (Negative) ng/mL U Marijuana (THC) Screen Negative (Negative) ng/mL Ethyl Alcohol (0-10) mg/dL Discharge Plan Discharge Prescriptions: No Action (DME) DME: [facility] See Rx Instructions .ROUTE .MEDSUPPLY Qty: 1 RF: 0 atorvastatin 80 mg Tablet 80 mg PO DAILY RF: 0 bumetanide 2 mg Tablet 4 mg PO BID RF: 0 spironolactone 25 mg Tablet 25 mg PO DAILY RF: 0 potassium chloride 20 mEq Tablet Extended Release 20 meq PO TID RF: 0 doxepin 50 mg Capsule 100 mg PO BEDTIME Qty: 60 RF: 4 memantine 5 mg Tablet 10 mg PO BID Qty: 60 RF: 4 duloxetine 20 mg Capsule,Delayed Release(Dr/Ec) 20 mg PO DAILY Qty: 30 RF: 4 trazodone 50 mg Tablet 50 mg PO BEDTIME PRN (Reason: Sleep) Qty: 30 RF: 4 topiramate 25 mg Tablet 50 mg PO BID Qty: 60 RF: 4 metformin [Glucophage] 500 mg tablet 500 mg PO BID Qty: 60 RF: 4 oxybutynin chloride 5 mg Tablet 10 mg PO BID Qty: 120 RF: 4 multivitamin [Multiple Vitamins] Tablet 1 tab PO DAILY RF: 0 aspirin 81 mg Tablet,Delayed Release (Dr/Ec) 81 mg PO DAILY RF: 0 ibuprofen 200 mg Tablet 200 mg PO Q6H PRN (Reason: Pain) RF: 0 docusate sodium [Colace] 100 mg Capsule 100 mg PO DAILY RF: 0 cholecalciferol (vitamin D3) [Vitamin D3] 10 mcg (400 unit) Tablet 10 mcg PO DAILY RF: 0 tamsulosin 0.4 mg Capsule 0.4 mg PO DAILY RF: 0 Sign Out Sign Out Data: Sign Out Comment: Case turned over to Dr. Sanchez at change of shift. Last updated by Anita Johnson at 07/26/19 05:33 Coding Level of Care Code ED Traffic Chief for Chg Fwd Exam Comprehensive The documentation recorded by the Sachin penaloza Ashley, accurately reflects the service I personally performed and the decisions made by Alex pinon Eli N Jul 26, 2019 00:50
[2019-07-26 01:27] LABS: INR 1.04 (0.8-1.2)
[2019-07-26 01:36] LABS: Basophils # 0.1 10^3/uL (0.0-0.1); Basophils % 0.6 %; Eosinophils # 0.2 10^3/uL (0.0-0.8); Eosinophils % 2.7 %; Hematocrit 35.7 % (42.0-52.0); Hemoglobin 11.1 g/dL (11.7-16.6); Lymphocytes # 1.3 10^3/uL (0.8-4.8); Lymphocytes % 14.5 %; Mean Corpuscular HGB Conc 31.1 g/dL (30.0-36.0); Mean Corpuscular Hemoglobin 25.7 pg (28.0-34.0); Mean Corpuscular Volume 82.6 fL (80-94); Mean Platelet Volume 10.4 fL (7.4-10.4); Monocytes # 0.7 10^3/uL (0.2-0.9); Monocytes % 8.4 %; Neutrophils # 6.3 10^3/uL (1.8-7.7); Neutrophils % 73.5 %; Nucleated Red Blood Cells % 0 %; Platelet Count 252 10^3/cmm (130-400); Red Blood Count 4.32 10^6/uL (4.1-5.3); Red Cell Distribution Width 16.5 % (12.1-15.1); White Blood Count 8.6 10^3/uL (4.0-10.0)
[2019-07-26 01:44] LABS: Alanine Aminotransferase 16 U/L (0-41); Albumin Level 3.5 g/dL (3.5-5.2); Alkaline Phosphatase 111 IU/L (40-130); Aspartate Amino Transferase 17 U/L (0-40); Blood Urea Nitrogen 25 mg/dL (6-20); Calcium 9.7 mg/dL (8.5-10.5); Carbon Dioxide 29 mmol/L (22-29); Chloride 102 mmol/L (98-107); Globulin 3.5 g/dL (1.3-4.6); Glomerular Filtration Rate 76.7 mL/min (90-130); Glucose 129 mg/dL (65-115); Sodium 141 mmol/L (136-145); Total Bilirubin 0.3 mg/dL (0.15-1.2)
[2019-07-26 01:45] LABS: Acetaminophen < 5.0 ug/mL (10-30); Alcohol Level < 10 mg/dL (0-10); Salicylate < 0.3 mg/dL (3-10)
--- NOTE | 2019-07-26 01:47 | PC.NURSE ---
Introduced self to patient and initiated vital signs. Patient presents A&O x 3. NAD, ABCs intact, and agreeable to treatment. Respirations are even and unlabored. Pt states that the chief complaint for the ER visit today is due to the swelling in his legs, but he also stated that he would / was going to hurt his girlfriend. Pt denies any vision disturbances or lightheadedness. Bed left in lowest position in semi-fowlers with side rails up.Reassured patient of needs and will continue to monitor. Sitter at bedside, patient changed into gown.
[2019-07-26 02:35] LABS: Amphetamines Screen Urine Negative (Negative); Barbiturates Screen Urine Negative (Negative); Benzodiazepines Screen Urine Negative (Negative); Cocaine Screen Urine Negative (Negative); PCP Screen Urine Negative (Negative); THC Screen Urine Negative (Negative)
[2019-07-26] MEDS: haloperidol inj 5 mg/mL INJ 1 mL IM (03:11)
--- NOTE | 2019-07-26 04:30 | PC.NURSE ---
Patient yelling in room, wanting nurses to assist him with a urine. Tech entered the room, patient began asking tech to her. RN entered room to assist with patient to ambulate to bathroom, While nurse was assisting patient, he began asking nurse to him and asking this writers age. Patient was instructed that such comments were not appreciate.
[2019-07-26] MEDS: haloperidol inj 5 mg/mL INJ 1 mL IVP (04:48)
[2019-07-26 04:51] VITALS: BP 137/80; PULSE 95; RESP 18; O2SAT 97
[2019-07-26] MEDS: LORazepam 2 mg/mL INJ 1 mL IM (05:08)
[2019-07-26 06:01] LABS: Phenytoin Dilantin 0.8 ug/mL (10-20); Valproic Acid Level 2.8 mcg/mL (50-100)
[2019-07-26 06:02] LABS: Lithium 0.1 mmol/L (0.6-1.2)
[2019-07-26 07:00] VITALS: RESP 18
--- NOTE | 2019-07-26 07:11 | PC.NURSE ---
please see 1:1 documentation for further charting
[2019-07-26] MEDS: acetaminophen 325 mg Tablet 650 MG PO (07:28)
[2019-07-26 09:18] VITALS: RESP 17; O2SAT 97
== END 2019-07-26 09:19 | disposition home or self-care (01) ==
PROVIDERS: Emergency Medicine; Emergency Provider Family Medicine; Family Provider Family Medicine; PCP Family Medicine
DX: F43.9 Reaction to severe stress, unspecified (principal); R45.850 Homicidal ideations
CPT/HCPCS: 80053; 80156; 80164; 80178; 80185; 80307; 84443; 85025; 85610; 96372; 96374; 99284; A9270; J1630; J2060

== ENCOUNTER 2019-07-30 13:32 | Emergency (ER) | payer MEDICARE, MEDICAID, SELFPAY ==
[2019-07-30 13:35] VITALS: BP 154/68; PULSE 83; RESP 18; O2SAT 96; BMI 43.0
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
[2019-07-30 14:00] LABS: Basophils # 0.1 10^3/uL (0.0-0.1); Basophils % 0.7 %; Eosinophils # 0.5 10^3/uL (0.0-0.8); Eosinophils % 7.2 %; Hematocrit 35.1 % (42.0-52.0); Hemoglobin 11.2 g/dL (11.7-16.6); Lymphocytes # 1.1 10^3/uL (0.8-4.8); Lymphocytes % 16.4 %; Mean Corpuscular HGB Conc 31.9 g/dL (30.0-36.0); Mean Corpuscular Hemoglobin 25.5 pg (28.0-34.0); Mean Corpuscular Volume 79.8 fL (80-94); Mean Platelet Volume 9.5 fL (7.4-10.4); Monocytes # 0.5 10^3/uL (0.2-0.9); Monocytes % 7.3 %; Neutrophils # 4.6 10^3/uL (1.8-7.7); Neutrophils % 68.1 %; Nucleated Red Blood Cells % 0 %; Platelet Count 261 10^3/cmm (130-400); Red Cell Distribution Width 16.2 % (12.1-15.1); White Blood Count 6.8 10^3/uL (4.0-10.0)
[2019-07-30] MEDS: acetaminophen 500 mg Tablet 1000 MG PO (14:25)
[2019-07-30 14:28] LABS: Alanine Aminotransferase 54 U/L (0-41); Albumin Level 3.7 g/dL (3.5-5.2); Alkaline Phosphatase 109 IU/L (40-130); Anion Gap 16.7 (5-19); Aspartate Amino Transferase 141 U/L (0-40); Blood Urea Nitrogen 23 mg/dL (6-20); Calcium 9.1 mg/dL (8.5-10.5); Carbon Dioxide 26 mmol/L (22-29); Chloride 96 mmol/L (98-107); Globulin 3.3 g/dL (1.3-4.6); Glomerular Filtration Rate 99.3 mL/min (90-130); Glucose 110 mg/dL (65-115); Potassium 3.7 mmol/L (3.5-5.1); Sodium 135 mmol/L (136-145); Thyroid Stimulating Hormone 2.95 uIU/mL (0.27-4.20); Total Bilirubin 0.5 mg/dL (0.15-1.2)
[2019-07-30 14:34] LABS: Acetaminophen < 5.0 ug/mL (10-30); Alcohol Level < 10 mg/dL (0-10); Salicylate < 0.3 mg/dL (3-10)
[2019-07-30 15:03] LABS: Amphetamines Screen Urine Negative (Negative); Barbiturates Screen Urine Negative (Negative); Benzodiazepines Screen Urine Negative (Negative); Cocaine Screen Urine Negative (Negative); Opiate Screen Urine Negative (Negative); PCP Screen Urine Negative (Negative); THC Screen Urine Negative (Negative)
[2019-07-30] MEDS: ziprasidone 20 mg/mL SDV IM (17:49)
[2019-07-30] MEDS: water for injection-sterile 10 ML (17:52)
[2019-07-30 20:26] VITALS: BP 172/84; PULSE 100; RESP 18; O2SAT 99
== END 2019-07-30 20:26 | disposition home or self-care (01) ==
PROVIDERS: Emergency Medicine; Emergency Provider Family Medicine; Family Provider Family Medicine; PCP Family Medicine
DX: F32.9 Major depressive disorder, single episode, unspecified (principal); F52.8 Other sexual dysfunction not due to a substance or known physiological condition; I50.9 Heart failure, unspecified; E11.9 Type 2 diabetes mellitus without complications; Z79.84 Long term (current) use of oral hypoglycemic drugs
CPT/HCPCS: 36415; 80053; 80307; 84443; 85025; 96372; 99284; J3486